=== PATIENT | male | born 1965 | race Caucasian/White ===

== ENCOUNTER → 2020-08-31 08:27 | Outpatient (CLI) | payer OTHER, SELFPAY ==
--- NOTE | ~2020-08-31 | MR_ITS ---
EXAMINATION: MR shoulder RT wo con DATE: 08/31/2020 09:21 INDICATION: Right shoulder pain. TECHNIQUE: Magnetic resonance imaging (MRI) of the right shoulder was performed without intravenous c ontrast. Sequences included axial PD-weighted FS FSE, coronal oblique PD-weighted FS FSE and T2-weigh lucia FS FSE, axial STIR FSE, and sagittal oblique T2-weighted FS FSE and T1-weighted FSE. COMPARISON: Right shoulder radiographs 08/20/2020 FINDINGS: Coracoacromial arch: The acromion undersurface is curved in morphology (type II). There is moderate acromioclavicular join t osteoarthritis. There is mild subacromial/subdeltoid bursitis. Rotator cuff: There is mild supraspinatus and infraspinatus tendinopathy. Teres minor tendon is normal. There is mo derate subscapularis tendinopathy. There is a 10 x 5 mm ganglion cyst in subscapularis at the myotend inous junction. There is mild fatty atrophy of subscapularis muscle belly. There is edema-like marrow signal intensity in lesser tuberosity. Biceps tendon and glenoid labrum: Biceps tendon is in bicipital groove. Intra-articular biceps tendon is normal. The glenoid labrum is normal. Fluid: There is a small glenohumeral joint effusion. Bones/cartilage: Glenoid cartilage is normal. Humeral head cartilage is normal. IMPRESSION: 1. Moderate rotator cuff tendinopathy. Small ganglion cyst in subscapularis at the myotendinous junct ion. 2. Moderate acromioclavicular joint osteoarthritis. 3. Mild subacromial/subdeltoid bursitis. 4. Small glenohumeral joint effusion. Reviewed, dictated and finalized at location A. IMPRESSION: 1. Moderate rotator cuff tendinopathy. Small ganglion cyst in subscapularis at the myotendinous junction. 2. Moderate acromioclavicular joint osteoarthritis. 3. Mild subacromial/subdeltoid bursitis. 4. Small glenohumeral joint effusion.
== END ==
PROVIDERS: Visit Provider Nurse Practitioner Family
DX: M25.511 Pain in right shoulder (principal); M75.82 Other shoulder lesions, left shoulder; M67.411 Ganglion, right shoulder; M19.011 Primary osteoarthritis, right shoulder; M75.51 Bursitis of right shoulder; M25.411 Effusion, right shoulder
CPT/HCPCS: 73221

== ENCOUNTER 2020-09-11 16:41 | Outpatient (CLI) | payer OTHER, SELFPAY ==
--- NOTE | ~2020-09-11 | MR_ITS ---
EXAMINATION: MR knee RT wo con DATE: 09/11/2020 17:32 INDICATION: Right knee pain TECHNIQUE: Magnetic resonance imaging (MRI) of the right knee was performed without intravenous contr ast. Sequences included coronal PD-weighted FSE, coronal PD-weighted FS FSE, sagittal T2-weighted FS E, sagittal PD-weighted FS FSE and axial PD weighted fat saturated FSE. COMPARISON: None. FINDINGS: Medial compartment: Medial meniscus is normal. Mild chondral swelling and likely fissure with tiny underlying central sub chondral osteophyte along the lateral margin of the anterior weightbearing medial femoral condyle. Ar ticular cartilage the medial compartment is otherwise normal. Lateral compartment: Lateral meniscus is normal. Articular cartilage is normal. Patellofemoral compartment: Diffuse partial-thickness patellar cartilage loss with small regions of full/near full-thickness jose d dral ulceration with underlying subarticular edema and. A few small flat central subchondral osteophy parrish. Trochlear cartilage is relatively preserved. Ligaments and tendons: Anterior and posterior cruciate ligaments are normal. The medial collateral ligament and fibular tari ateral ligament complex are normal. The extensor mechanism is normal. The visualized medial and later al hamstring tendons as well as the iliotibial band are normal. Fluid: Small right knee joint effusion. No loose osteochondral bodies identified. There is a large partially visualized loculated fluid collection along the superficial margin of the vastus medialis and supero medial aspect of the patella which measures at least 4.8 x 1.7 cm in maximal transaxial dimensions an d on the supervisor special education image measures 6.6 cm in craniocaudal dimension. The location is more superomedial stephanie n would be expected for the prepatellar bursa given history of trauma would favor a hematoma/seroma a t the site of an internal degloving injury (Arriola Gautam lesion). There is additional prepatellar s oft tissue edema. Osseous/other: Bone alignment is normal. No fracture. There is a 9 x 4 mm ovoid defect in the anterior cortex of the supratrochlear distal femur with intermediate signal extending along a 1 cm deep tract into the medu llary space of the distal femur. There are well-defined margins to the defect with peripheral low sig nal intensity cortication. The immediately adjacent marrow signal is normal. There is also some remod eling of the cortex peripheral to the cortical defect. There is intermediate signal intensity within the defect which is contiguous with a small region of similar signal intensity underlying the elevate d periosteum external to the cortex. This region measures approximately 2.3 cm medial to lateral, 2.2 cm cranial to caudal and measures up to 5 mm in thickness. Aside from this lesion and the previous n oted subarticular edema there is normal marrow signal. IMPRESSION: 1. 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 2. 6.8 x 4.8 x 1.7 cm loculated fluid collection along the superficial margin of the distal vastus me dialis which given the history of trauma would be most consistent with a hematoma/seroma in the setti ng of an internal degloving injury (Arriola Gautam lesion). 3. Indeterminate chronic lytic lesion extending through the anterior cortex of the distal right femur with corticated margins and which is contiguous with a small subperiosteal lesion, unclear whether s olid or cystic. Differential would include sequela of prior surgery or trauma, chronic sinus tract re lated osteomyelitis or neoplasm either benign or low-grade malignant. Correlate with clinical history and consider further evaluation with plain radiographs and pre and postcontrast MRI. Reviewed, dictated and finalized at location AFer [facility]c
== END 2020-09-11 16:42 | disposition home or self-care (01) ==
LOC: ANHIMG 16:45
PROVIDERS: PCP Internal Medicine; Visit Provider Nurse Practitioner
DX: M17.11 Unilateral primary osteoarthritis, right knee (principal); M22.41 Chondromalacia patellae, right knee
CPT/HCPCS: 73721

== ENCOUNTER 2020-10-24 17:00 | Outpatient (CLI) | payer OTHER, SELFPAY ==
--- NOTE | ~2020-10-24 | MR_ITS ---
EXAMINATION: MR femur RT wo/w con DATE: 10/25/2020 06:39 INDICATION: Distal right femoral bone lesion TECHNIQUE: Magnetic resonance imaging (MRI) of the right femur was performed without and with 15 mL M ultihance intravenous contrast. Sequences included axial, sagittal and coronal T1-weighted FSE and fl uid sensitive FSE STIR, axial T1-weighted FS FSE and post contrast axial and coronal T1-weighted FS F SE. The contralateral left femur/thigh is included on the coronal images. COMPARISON: Knee MR dated 09/11/2020 FINDINGS: No significant interval change in a 10 x 5 mm T1 isointense, STIR hyperintense lesion which erodes th rough the cortex along the anterior metaphyseal region of the distal femur just above the lateral tro chlea. The lesion is contiguous with a region of elevation of the periosteum peripheral to the cortex which extends approximately 2.5 cm medial collateral, 3 cm craniocaudal and measuring up to 5 mm in thickness. Both the lesion in the region under the elevated periosteum demonstrate relatively homogen eous enhancement with no nonenhancing central fluid or surrounding marrow enhancement or edema to sug gest infection/abscess favoring solid neoplasm. The periosteal side of the enhancing lesion appears t o remain intact with no evident involvement of the joint space with the intervening deep suprapatella r fat pad. There are some likely degenerative subarticular edema underlying the medial and lateral pa tellar facets with overlying high-grade chondromalacia as previously detailed. Marrow signal is other pedroza normal with no other bone lesions identified in the right femur. No hip or knee joint effusion. Musculature of the bilateral thighs appears normal and symmetric. No other enhancing soft tissue lesi ons or pathologically enlarged inguinal lymphadenopathy. IMPRESSION: 1. Relatively homogeneous enhancement of a 10 x 5 mm distal right femoral bone lesion located cephala d to the lateral trochlea with extension of enhancing soft tissue 3 defect in the cortex and into the subperiosteal space. This is most concerning for malignancy including primary bone tumor such as per iosteal chondrosarcoma or osteosarcoma. Differential would include less likely chronic infection. Wou ld recommend orthopedic oncology consultation as well as plain radiographs or CT which would aid in a ssessment for aggressive versus nonaggressive features and to assess for any calcified matrix. Reviewed, dictated and finalized at location A. IMPRESSION: 1. Relatively homogeneous enhancement of a 10 x 5 mm distal right femoral bone lesion located cephalad to the lateral trochlea with extension of enhancing sof t tissue 3 defect in the cortex and into the subperiosteal space. This is most concerning for malignancy including primary bone tumor such as periosteal chond rosarcoma or osteosarcoma. Differential would include less likely chronic infec tion. Would recommend orthopedic oncology consultation as well as plain radiogr aphs or CT which would aid in assessment for aggressive versus nonaggressive fe atures and to assess for any calcified matrix.
[2020-10-24 17:43] LABS: Estimated Glomerular Filt Rate 58
== END 2020-10-24 17:01 | disposition home or self-care (01) ==
LOC: ANHIMG 17:02
PROVIDERS: PCP Internal Medicine; Visit Provider Nurse Practitioner
DX: M89.9 Disorder of bone, unspecified (principal)
CPT/HCPCS: 73720; A9577

== ENCOUNTER → 2021-03-12 14:32 | Outpatient (CLI) | payer OTHER, SELFPAY ==
--- NOTE | ~2021-03-12 | MR_ITS ---
EXAMINATION: MR hip LT wo con DATE: 03/12/2021 16:28 INDICATION: Left hip pain. TECHNIQUE: Magnetic resonance imaging (MRI) of the left hip was performed without intravenous contras t. Sequences included axial and coronal PD-weighted FS FSE and axial T1-weighted FSE of the pelvis. S equences of the hip included 2D FIESTA, T1-weighted fast GRE, and axial, coronal, and sagittal PD-kate ghted FS FSE. COMPARISON: Pelvis and left hip radiographs 02/24/2021 FINDINGS: Bones/cartilage: Bone alignment is normal. No fracture. The femoral head/neck morphologies are normal. Left hip joint demonstrates partial thickness cartilage loss superiorly. Labrum: Left acetabular labrum is normal. Fluid: There is no hip joint effusion. There is mild bilateral trochanteric bursitis. Soft tissues: There is mild bilateral gluteus minimus tendinopathy. The right gluteus medius tendon is normal. Ther e is mild left gluteus medius tendinopathy. The iliopsoas tendons are normal. There is mild tendinopa thy of the hamstring origins bilaterally. IMPRESSION: 1. Mild left hip chondrosis. 2. Mild bilateral gluteus minimus tendinopathy and mild left gluteus medius tendinopathy. 3. Mild bilateral trochanteric bursitis. Reviewed, dictated and finalized at location A. OR TUG CAPTAIN IMPRESSION: 1. Mild left hip chondrosis. 2. Mild bilateral gluteus minimus tendinopathy and mild left gluteus medius ten dinopathy. 3. Mild bilateral trochanteric bursitis.
== END ==
PROVIDERS: PCP Internal Medicine; Visit Provider Nurse Practitioner Family
DX: M70.62 Trochanteric bursitis, left hip (principal)
CPT/HCPCS: 73721

== ENCOUNTER 2021-03-26 09:17 | Outpatient (CLI) | payer OTHER, SELFPAY ==
--- NOTE | ~2021-03-26 | MR_ITS ---
EXAMINATION: MR shoulder LT wo con DATE: 03/26/2021 10:44 INDICATION: Left shoulder pain TECHNIQUE: Magnetic resonance imaging (MRI) of the left shoulder was performed without intravenous co ntrast. Sequences included axial PD-weighted FS FSE, coronal oblique PD-weighted FS FSE, coronal obli que T2-weighted FS FSE, sagittal PD-weighted FS FSE, and sagittal T1-weighted SE. COMPARISON: None. FINDINGS: Coracoacromial arch: The acromion undersurface is curved in morphology (type II). The coracoacromial ligament is normal. M ild acromioclavicular osteoarthritis. Rotator cuff: Mild supraspinatus tendinopathy without discrete tear. The infraspinatus, teres minor and subscapular is tendons are normal. Normal rotator cuff muscle bulk and signal. Biceps tendon, glenoid labrum and glenohumeral cartilage: Long head of the biceps tendon is normal. Partial-thickness cartilage loss with smooth chondral surfa ce along the cephalad two thirds of the glenoid and along the inferomedial aspect of the humeral head . Small tear at the anterosuperior glenoid labrum extending from the likely normal sublingual foramen . Minimal cystic change along the underlying rim of the glenoid at the 1:00 position. Fluid: Physiologic amount of fluid in the glenohumeral joint and biceps tendon sheath. No loose osteochondra l bodies. No abnormal increased fluid signal in the subacromial/subdeltoid bursa to suggest bursitis. Bones: Normal marrow signal. No fracture or pathologic marrow replacing process. IMPRESSION: 1. Mild left glenohumeral and acromioclavicular osteoarthritis. 2. Small tear at the anterosuperior glenoid labrum. 3. Mild supraspinatus tendinopathy without discrete tear. Reviewed, dictated and finalized at location A. SIONS ENGINEER
--- NOTE | ~2021-03-26 | XR_ITS ---
EXAMINATION: XR lg joint inject/asp w image EXAM DATE: 03/26/2021 11:29 INDICATION: Left hip pain, arthritis. TECHNIQUE: This procedure was performed by Dr. Yovany Walton, radiologist. I discussed procedure inclu ding the risks, benefits and alternatives with the patient. Risks discussed included bleeding and inf ection. The patient understood the risks and agreed to proceed. A time-out was performed to verify the patient's name, date of , and procedure. The skin over lying the left hip joint was prepped and draped in usual sterile fashion. Anesthetic was administere d with 3 milliliters 1% lidocaine subcutaneously. A 22 G needle was advanced under fluoroscopic guid ance into the joint. A total of 12 mL of 1:200 of 529 mg/mL Multihance, 1:4 lidocaine, and 1:4 Omnip aque 240 was instilled. Total of 2 mL of Omnipaque 240 confirmed intra-articular position of the ne edle. Subsequently, injectate consisting of 80 mg Depo-Medrol, 2 mL 0.5% Marcaine was instilled. T he needle was removed and the entry site was cleaned and dressed. There were no immediate complicati ons. Pulsed dose reduction fluoroscopy was used with fluoroscopic time of 0.1 minutes. The DAP for this procedure was 0.5 Gycm2. A total of 4 images obtained for the exam. The procedure was performed on 03/26/2021. FINDINGS: Real-time fluoroscopy demonstrates the needle and contrast in the left hip joint. Patient reported left hip preprocedure pain level of 3/10, postprocedure pain level 1/10. IMPRESSION: Successful left hip therapeutic joint injection. Reviewed, dictated and finalized at location A. MEDIC RN
== END 2021-03-26 09:18 | disposition home or self-care (01) ==
LOC: ANHIMG 09:18
PROVIDERS: PCP Internal Medicine; Visit Provider Nurse Practitioner Family
DX: M25.512 Pain in left shoulder (principal); M19.012 Primary osteoarthritis, left shoulder
CPT/HCPCS: 20610; 73221; 77002; J1030; Q9966

== ENCOUNTER → 2022-05-28 10:34 | Outpatient (CLI) | payer OTHER, SELFPAY ==
--- NOTE | ~2022-05-28 | XR_ITS ---
XR chest 2V 05/28/2022 10:45 Indication: Unexplained weight loss Procedure: 2 view chest Comparison: No prior studies for comparison. Findings: Heart size normal. No focal air space disease, pulmonary edema, pleural effusion or suspect ed pneumothorax. Impression: 1: No acute cardiopulmonary disease. Reviewed, dictated and finalized at [facility] L. ATION RESEARCH ANALYST Impression: 1: No acute cardiopulmonary disease.
== END ==
PROVIDERS: PCP Internal Medicine; Visit Provider Nurse Practitioner
DX: R63.4 Abnormal weight loss (principal)
CPT/HCPCS: 71046

== ENCOUNTER → 2022-06-12 13:49 | Outpatient (CLI) | payer OTHER, SELFPAY ==
--- NOTE | ~2022-06-12 | CT_ITS ---
EXAMINATION: CT chest abdomen pelvis w con DATE: 06/12/2022 14:19 INDICATION: Unintentional weight loss TECHNIQUE: Computed tomography (CT) of the chest, abdomen, and pelvis was performed with 100 mL Omnip aque-350 intravenous contrast. Automated exposure control and iterative reconstruction technique were employed. The dose-length product was 854.73 mGy-cm. COMPARISON: None FINDINGS: CHEST CT: Anatomic variant azygos lobe and fissure. Minimal dependent atelectasis in the bilateral lower lobes. No suspicious pulmonary nodules, pneumonia, pulmonary edema or pleural effusion. Heart size is jaziel l. No pericardial effusion. Fusiform ascending thoracic aortic aneurysm measuring up to 4.4 x 4.3 cm. No pathologically enlarged thoracic lymphadenopathy. ABDOMEN/PELVIS CT: Postoperative change of prior Rikki fundoplication. Mild intrahepatic biliary ductal dilation and mi ld dilation of the common bile duct which measures up to 10 mm in maximal diameter likely related to prior cholecystectomy with surgical clips at the gallbladder fossa. Spleen, pancreas, bilateral adren al glands and left kidney are normal. 1 cm exophytic cyst at the lower pole of the right kidney. Raysa ls including the appendix are normal. A loop of small bowel extends anterior to the liver and into th e anterior aspect of an eventration of the right hemidiaphragm. Bladder is normal. No free intraperit lozoya gas or fluid. No pathologically enlarged abdominal or pelvic lymphadenopathy. IMPRESSION: 1. No acute intrathoracic, abdominal or pelvic process. No lesions suspicious for malignancy in the c hest, abdomen or pelvis. 2. 4.4 cm fusiform ascending thoracic aortic aneurysm. Reviewed, dictated and finalized at location B. IMPRESSION: 1. No acute intrathoracic, abdominal or pelvic process. No lesions suspicious f or malignancy in the chest, abdomen or pelvis. 2. 4.4 cm fusiform ascending thoracic aortic aneurysm.
[2022-06-12 14:10] LABS: Estimated Glomerular Filt Rate > 60
== END ==
PROVIDERS: PCP Internal Medicine; Visit Provider Nurse Practitioner
DX: R63.4 Abnormal weight loss (principal); R61 Generalized hyperhidrosis; I71.21 Aneurysm of the ascending aorta, without rupture
CPT/HCPCS: 71260; 74177; Q9967

== ENCOUNTER 2022-12-13 11:28 | Observation (INO) | payer OTHER, SELFPAY ==
--- NOTE | ~2022-12-13 | CT_ITS ---
EXAMINATION: CT abdomen pelvis wo con DATE: 12/15/2022 13:43 INDICATION: Recent left ureterovesicular junction stone TECHNIQUE: Computed tomography (CT) of the abdomen and pelvis was performed without intravenous contr ast. The dose-length product (DLP) was 363.49 mGy-cm. Automated exposure control and iterative recons truction technique were employed. COMPARISON: 12/13/2022 FINDINGS: Minimal dependent atelectasis is present in the lung bases. The heart size is normal. The g allbladder is surgically absent. There is mild enlargement of the common bile duct and central intrah epatic ducts which is likely due to post cholecystectomy state. The liver, spleen, pancreas, and adre nal glands are normal. There are two nonobstructing stones of the right kidney lower pole which measu re 2 mm. There is a 10 mm cyst of the right kidney lower pole. The previously described stone at the left ureterovesicular junction is no longer present. No stones are present in the ureters or bladder. There is mild periureteral fat stranding on the left, consistent with inflammation and recent passag e of stone. No pathologically enlarged abdominal or pelvic lymph nodes are identified. No free intrap eritoneal gas or evidence of bowel obstruction. Punctate appendicoliths are noted in the otherwise no rmal appendix. There is mild lumbar spondylosis. IMPRESSION: 1. Interval passage, or treatment, of the previously described left ureterovesicular junction stone. 2. Nonobstructing right nephrolithiasis. Reviewed, dictated and finalized at location [facility]. IMPRESSION: 1. Interval passage, or treatment, of the previously described left ureterovesi cular junction stone. 2. Nonobstructing right nephrolithiasis.
--- NOTE | ~2022-12-13 | CT_ITS ---
EXAMINATION: CT abdomen pelvis wo con DATE: 12/13/2022 13:03 INDICATION: Flank pain. Constipation. Nausea. TECHNIQUE: Computed tomography (CT) of the abdomen and pelvis was performed without intravenous contr ast. Automated exposure control and iterative reconstruction technique were employed. Exam dose: 358 .84 mGy-cm total exam DLP. COMPARISON: 06/12/2022 CT chest abdomen pelvis FINDINGS: The lung bases are clear. Normal heart size. No pericardial or pleural effusion. Very small sliding hiatal hernia. Status post cholecystectomy. Normal splenic size. There is pancreatic atrophy. No pancreatic mass lesion, calcification or bile duct or pancreatic duct dilatation. Normal morphology of the adrenal glands. There are 2 very small nonobstructing lower pole left renal calculi. Approximately 2.3 x 4 mm calculus at the left ureterovesical junction with mild left hydroureteroneph rosis. There is some increased density around the left renal pelvis and left ureter, which may be sec ondary to pyelosinus extravasation secondary to obstruction, but infection is not excluded. Clinical correlation is advised. Prostate enlargement and calcifications, which may account for moderate diffuse thickening of the uri nary bladder wall. There is a small appendicolith within the distal appendix. No abnormal dilatation of the appendix or surrounding inflammation is noted. There are air-fluid levels of the small bowel and right colon, without apparent obstruction, possibly due to adynamic ileus or enterocolitis. No intraperitoneal free air is detected. Normal caliber of the abdominal aorta. No intraperitoneal or retroperitoneal or pelvic mass lesion or adenopathy or ascites is noted.. IMPRESSION: 2.3 x 4 mm left ureterovesical junction calculus with mild left hydroureteronephrosis, p robable peripelvic and proximal periureteral pyelosinus extravasation secondary to obstruction; infec tion is not excluded Minimal right nonobstructive nephrolithiasis Status post cholecystectomy Air-fluid levels of small bowel and right colon; consider enterocolitis Very small appendicolith in the distal appendix; appendix is not abnormally dilated millimeters there is surrounding inflammation. Clinical correlation is advised. Prostate enlargement and calcifications Reviewed, dictated and finalized at [facility]. Reviewed, dictated and finalized at location A. IMPRESSION: 2.3 x 4 mm left ureterovesical junction calculus with mild left hy droureteronephrosis, probable peripelvic and proximal periureteral pyelosinus e xtravasation secondary to obstruction; infection is not excluded Minimal right nonobstructive nephrolithiasis Status post cholecystectomy Air-fluid levels of small bowel and right colon; consider enterocolitis Very small appendicolith in the distal appendix; appendix is not abnormally dil ated millimeters there is surrounding inflammation. Clinical correlation is adv ised. Prostate enlargement and calcifications
--- NOTE | ~2022-12-13 | XR_ITS ---
EXAMINATION: XR abdomen/kub 1V INDICATION: Flank pain TECHNIQUE: Supine views of the abdomen were obtained on 2 radiographs. COMPARISON: CT, 12/13/2022 FINDINGS: The left ureterovesicular junction stone described on the comparison CT is not definitely i dentified. The bowel gas pattern is normal. Cholecystectomy clips are noted. IMPRESSION: 1. Previously described left ureterovesicular junction stone not definitely identified. Reviewed, dictated and finalized at location L. IMPRESSION: 1. Previously described left ureterovesicular junction stone not definitely melo ntified.
[2022-12-13 11:37] VITALS: BP 134/89; PULSE 60; RESP 20; TEMP 36.4; O2SAT 100
[2022-12-13 12:09] LABS: Basophils Percent Auto 0.3 % (0.2-1.2); Eosinophils Absolute Auto 0.1 K/mm3 (0-0.3); Eosinophils Percent Auto 1.4 % (0-4.4); Hematocrit 38.9 % (42.0-52.0); Hemoglobin 13.3 g/dL (14.0-18.0); Immature Granulocyte Absolute 0.05 K/mm3 (0.00-0.031); Immature Granulocyte Percent A 0.5 % (0-0.5); Lymphocytes Absolute Auto 0.93 K/mm3 (0.9-3.2); Lymphocytes Percent Auto 9.5 % (18.3-44.2); Mean Corpuscular HGB Conc 34.2 g/dl (32-36); Mean Corpuscular Hemoglobin 33.5 pg (26-34); Mean Platelet Volume 9.6 fl (7.4-10.4); Monocytes Absolute Auto 0.4 K/mm3 (0.1-0.6); Monocytes Percent Auto 4.2 % (2.6-8.5); Neutrophils Absolute Auto 8.3 K/mm3 (1.3-6.7); Neutrophils Percent Auto 84.1 % (45.5-73.1); Platelet Count Result 423 k/mm3 (150-375); Red Blood Count 3.97 M/mm3 (4.6-6.20); Red Cell Distribution Width 13.7 % (11.5-14.5); White Blood Count 9.8 K/mm3 (4.5-10.0)
[2022-12-13 12:21] LABS: Appearance Urine Turbid (Clear); Bacteria Urine None Seen /hpf; Bilirubin Urine Negative (Negative); Blood Urine 2+ (Negative); Color Urine Dark Yellow (Yellow); Glucose Urine UA Negative (Negative); Ketones Urine Trace mg/dL (Negative); Leukocyte Esterase Ur Negative LEU/UL (Negative); Nitrate Urine Negative (Negative); Non Pathogenic Casts 0-2; Protein Urine Trace mg/dL (Negative); RBC Urine 21-50 /hpf (0-2); Specific Grav Ur 1.016 (1.001-1.035); Squamous Epithelial Cell Urine None seen /hpf (Few); WBC Urine 0-5 /hpf
[2022-12-13 12:23] LABS: Add Urine Microscopic? YES
[2022-12-13 12:26] LABS: Alanine Aminotransferase 57 U/L (6-50); Albumin Level 4.4 g/dL (3.5-5.1); Alkaline Phosphatase 97 U/L (38-126); Anion Gap 11 mmol/L (8-16); Aspartate Amino Transferase 44 U/L (17-59); Bilirubin,Total 1.1 mg/dL (0.2-1.3); Blood Urea Nitrogen 12 mg/dL (9-20); Calcium 9.7 mg/dL (8.4-10.2); Carbon Dioxide 18 mmol/L (22-30); Chloride 110 mmol/L (98-107); Estimated CRCL calculation 64 ml/min; Estimated Glomerular Filt Rate > 60; Glucose 126 mg/dL (65-110); Lipase 57 U/L (23-300); Potassium 3.3 mmol/L (3.4-5.0); Sodium 139 mmol/L (137-145)
[2022-12-13 12:28] LABS: Lactic Acid Reflex 2.6 mmol/L (0.7-2.0)
--- NOTE | 2022-12-13 12:49 | ED.ABDPAIN ---
HPI - Abdominal Pain General Chief Complaint: Abdominal Pain Stated Complaint: abdominal pain, constipation Time Seen by Provider: 12/13/22 12:05 History of Present Illness HPI narrative: Patient is a 56-year-old male with a history of neurofibromatosis, hypothyroidism presenting with abdominal pain. is at bedside and helps with the history. States that he has been having abdominal pain all week. He has not had a bowel movement in approximately 9 to 10 days. He was seen at an outside hospital 2 days ago [address] a CT was performed and he was told nothing was wrong. His has given him numerous enemas as well as MiraLAX without any subsequent bowel movements. He continues to have periumbilical abdominal pain as well as left flank pain. Reports nausea but no vomiting as he has had a prior fundoplication. No fevers, chest pain, shortness of breath, cough, dysuria, hematuria. Related Data Home Medications Medication Instructions Recorded Confirmed cetirizine 10 mg capsule (Zyrtec) 10 mg PO DAILY 08/29/19 12/13/22 levothyroxine 125 mcg capsule 125 mcg PO DAILY 01/14/21 12/13/22 cyclobenzaprine 5 mg tablet 5 mg PO QHS 12/25/21 12/13/22 tramadol 50 mg tablet 50 mg PO PRN PRN Pain, Moderate 05/28/22 12/13/22 folic acid 1 mg tablet 1 mg PO DAILY 08/11/22 12/13/22 golimumab 12.5 mg/mL intravenous 12.5 mg IV Q1-2M 08/11/22 12/13/22 solution (Simponi ARIA) prednisone 5 mg tablet 5 mg PO TID PRN Inflammation 09/07/22 12/13/22 cholecalciferol (vitamin D3) 25 25 mcg PO DAILY 12/13/22 12/13/22 mcg (1,000 unit) chewable tablet (Vitamin D3) diclofenac sodium 75 mg 75 mg PO BID 12/13/22 12/13/22 tablet,delayed release diphenhydramine HCl 50 mg capsule 50 mg PO HS PRN Insomnia 12/13/22 12/13/22 ketoconazole 2 % topical cream 1 applic topical PRN 12/13/22 12/13/22 [id number] 150 mcg-vit K1 150 tablet PO DAILY 12/13/22 12/13/22 30 mcg-lycop 300 mcg-lutein tablet (Centrum Minis Men 50 Plus) olmesartan 20 mg tablet 20 mg PO DAILY 12/13/22 12/13/22 ubrogepant 50 mg tablet (Ubrelvy) 50 mg PO PRN 12/13/22 12/13/22 Allergies Allergy/AdvReac Type Severity Reaction Status Date / Time erythromycin base Allergy Unknown Other Verified 09/07/22 09:36 Review of Systems Review of Systems: All systems reviewed & are unremarkable except as noted in HPI and below [facility] Past Medical History Medical History (Updated 12/19/22 @ 19:34 by Henna Khanna MD) Ankylosing spondylitis Hypothyroidism Lumbago Neurofibromatosis Obstructive sleep apnea Thoracic aortic aneurysm Surgical History Surgical History History of fundoplication Hx of cholecystectomy Family History Family History Other Hypertension Social History Social History Smoking status: Former smoker Alcohol intake: never Substance use: current Substance use type: marijuana Other substance usage details: medical marijuana Lack of Transportation: No Lack of Food: Never True Current Housing: I Have Housing Concerned About Future Housing: No Difficulty Paying Gas/Electric Bills: No Difficulty Paying for Meds: No Currently Unemployed: No Education: High School Diploma/GED Difficulty w/ Childcare or Family Care: No Spiritual care concerns: No Exam Narrative: GENERAL: Moderately distressed secondary to pain, nontoxic HEAD: Normocephalic, atraumatic. EYES: PERRLA and EOMI. ENT: Nares clear, no rhinorrhea or epistaxis. Mucous membranes moist. NECK: Supple. CHEST: Clear to auscultation. No respiratory distress. HEART: Regular rate and rhythm. ABDOMEN: Soft, diffusely tender without guarding or rebound, +left CVA tenderness EXTREMITIES: Normal range of motion. No edema. SKIN: Warm, dry, no rash. NEURO: No focal deficits. Alert and oriented x3. PSYCH:
[2022-12-13] MEDS: HYDROmorphone HCL INJ (*CRX) 1 MG/ML SYR 0.5 MG IV PUSH (13:11)
[2022-12-13] MEDS: ONDANSETRON INJ 4 MG/2 ML VIAL IV PUSH (13:11)
[2022-12-13] MEDS: SODIUM CHLORIDE 0.9% IV 1,000 ML 999 ML IV CONT ×2 (13:12→15:25)
[2022-12-13 15:08] LABS: Reflex Lactic Acid Yes or No Add Lactic
[2022-12-13 15:24] VITALS: BP 110/85; PULSE 96; RESP 18; O2SAT 98
[2022-12-13 15:59] LABS: Lactic Acid 1.6 mmol/L (0.7-2.0)
[2022-12-13] MEDS: KETOROLAC 30 MG/ML VIAL (*BKC) IV PUSH (16:40)
[2022-12-13 18:24] VITALS: BP 103/90; PULSE 91; RESP 18; O2SAT 100
--- NOTE | 2022-12-13 18:41 | ADMGEN ---
This patient, Ramakrishna Wylie, was admitted to 3 Med Surg Room 311-01 @ 1841. Patient/family oriented to hospital policies and general routines including ID bracelet, bed and alarms, visiting hours, pain management, procedures, bathroom and other care routines, personal items, smoking policy, room service/diet, and visiting hours. Information on how to activate the Rapid Response Team has been discussed. Patient/Family are encouraged to report perceived risks to care and to ask questions if they do not understand what they are told or what they should do.
[2022-12-13 18:58] VITALS: BMI 26.0
[2022-12-13 20:49] VITALS: BP 122/85; PULSE 75; RESP 16; TEMP 36.7; O2SAT 99
[2022-12-13] MEDS: HYDROcodone/acetaminophen (*CRX) 5-325 MG TABLET 1 TAB PO (21:22)
--- NOTE | 2022-12-13 23:06 | PM.IMHP ---
H&P: HPI History of Present Illness Date/Time: 12/13/22 19:00 Chief Complaint: Abdominal pain. Narrative: This is a 56-year-old male with neurofibromatosis, hypothyroidism, and ankylosing spondylitis who presented to the emergency department via private vehicle from home for evaluation of abdominal pain. The patient provides the following history. He reports a generalized abdominal cramping discomfort which has been present for upwards of 10 days which she contributes to constipation as he has not had a good bowel movement in the same time frame. He was seen at [facility] 2 days ago for evaluation of this pain at which time he apparently had a CT scan which she was told was unremarkable. He was discharged home in the same discomfort he was in when he arrived. has given him multiple enemas and MiraLax without significant resolved however he has passed some stool. He continues to have pain which seems to be worse in the left abdomen and flank. He has missed several days of work due to the pain. He was told to stop taking the tramadol and his medical marijuana as both of these could be causing the constipation. Despite stopping these drugs and the enemas, he has not gotten any relief. Historically he has not had issues with constipation however he has been taking 2 tramadol most days for a couple of months due to ongoing pain related to ankylosing spondylitis. He denies fever, chills, sweats, cold and flu symptoms, vomiting, hematemesis, melena, hematochezia, dysuria, and hematuria. He was afebrile on arrival to the emergency department with stable vital signs. Labs were significant for a WBC count of 9.8, hemoglobin 13.3, sodium 139, potassium 3.3, lactic acid 2.6, lipase 57. Urine was turbid with trace ketones, 2+ blood, 21 to 50 RBC, 0 to 5 WBC, and [address] of the abdomen and pelvis showed a 2.3 x 4 mm left ureterovesicular junction calculus with mild left hydroureteronephrosis and probable peripelvic and proximal periureteral pyelosinus extravasation secondary to obstruction though infection is not excluded, minimal right nonobstructive nephrolithiasis, and air-fluid levels of the small bowel and right colon which may be reflective enterocolitis. He is being admitted in this setting for pain control and urology consultation. Review of Systems Review of Systems: Twelve systems were reviewed and are negative except for as per HPI. [facility] Past Medical History Medical History (Updated 12/15/22 @ 15:57 by Apryl Carvajal PA-C) Ankylosing spondylitis Hypothyroidism Lumbago Neurofibromatosis Obstructive sleep apnea Thoracic aortic aneurysm Surgical History Surgical History History of fundoplication Hx of cholecystectomy Family History Family History Other Hypertension Social History Social History Smoking status: Former smoker Alcohol intake: never Substance use: current Substance use type: marijuana Other substance usage details: medical marijuana Lack of Transportation: No Lack of Food: Never True Current Housing: I Have Housing Concerned About Future Housing: No Difficulty Paying Gas/Electric Bills: No Difficulty Paying for Meds: No Currently Unemployed: No Education: High School Diploma/GED Difficulty w/ Childcare or Family Care: No Spiritual care concerns: No Meds Home Medications and Allergies Home Medications Medication Instructions Recorded Confirmed Type cetirizine 10 mg capsule (Zyrtec) 10 mg PO DAILY 08/29/19 12/13/22 History levothyroxine 125 mcg capsule 125 mcg PO DAILY 01/14/21 12/13/22 History cyclobenzaprine 5 mg tablet 5 mg PO QHS 12/25/21 12/13/22 History nadolol 20 mg tablet 20 mg PO DAILY #30 tabs 05/04/22 12/13/22 Rx tramadol 50 mg tablet 50 mg PO PRN PRN Pain, Moder
[2022-12-13] MEDS: POTASSIUM CHLORIDE 20 MEQ PACKET (FOR LIQUID) PO (23:47)
[2022-12-13] MEDS: LACTATED RINGERS 1,000 ML 100 ML IV CONT (23:48)
[2022-12-13] MEDS: PIPERACILLN/TAZ 3.375GM/NS50ML 3.375 GM/50 ML BAG IVPB (23:48)
[2022-12-13] MEDS: MORPHINE SULFATE (*CRX) 2 MG/ML INJ IV PUSH (23:58)
[2022-12-14] MEDS: diphenhydrAMINE HCl CAP 25 MG CAPSULE 50 MG PO (00:03)
[2022-12-14 04:26] VITALS: BP 99/72; PULSE 82; RESP 16; TEMP 36.7; O2SAT 100
[2022-12-14] MEDS: PIPERACILLN/TAZ 3.375GM/NS50ML 3.375 GM/50 ML BAG IVPB ×4 (05:22→23:01)
[2022-12-14] MEDS: MORPHINE SULFATE (*CRX) 2 MG/ML INJ IV PUSH (05:29)
--- NOTE | 2022-12-14 06:32 | PC.NURSE ---
This RN has reviewed and agrees with Geovanna Edmonds (license pending RN) nursing notes, assessments, and medication administrations.
[2022-12-14 07:08] LABS: Hematocrit 32.4 % (42.0-52.0); Hemoglobin 10.9 g/dL (14.0-18.0); Mean Corpuscular HGB Conc 33.6 g/dl (32-36); Mean Corpuscular Hemoglobin 33.6 pg (26-34); Mean Platelet Volume 9.3 fl (7.4-10.4); Platelet Count Result 217 k/mm3 (150-375); Red Blood Count 3.24 M/mm3 (4.6-6.20); Red Cell Distribution Width 13.5 % (11.5-14.5)
[2022-12-14 07:17] LABS: Anion Gap 4 mmol/L (8-16); Blood Urea Nitrogen 12 mg/dL (9-20); Calcium 8.5 mg/dL (8.4-10.2); Carbon Dioxide 21 mmol/L (22-30); Chloride 112 mmol/L (98-107); Estimated CRCL calculation 41 ml/min; Estimated Glomerular Filt Rate 45; Glucose 97 mg/dL (65-110); Magnesium 1.9 mg/dL (1.6-2.3); Potassium 3.1 mmol/L (3.4-5.0); Sodium 137 mmol/L (137-145)
--- NOTE | 2022-12-14 07:45 | WPDURCON ---
Assessment and Plan Assessment and plan (1) Left ureteral stone: Code(s): N20.1 - Calculus of ureter Status: Acute Assessment and Plan: He currently appears comfortable. The stone is small on CT scan. One with the it has a reasonable chance of passing, but has not passed yet. Continue to strain his urine. We will get a KUB in the morning. If stone has failed to pass we will plan on left ureteroscopy and stone extraction tomorrow. He understands risks of bleeding, infection, damage to urinary tract, inability remove the stone. He is agreement to proceed with that procedure should he not pass his stone today Urology Consult Note HPI Date Seen: 12/14/22 Requesting Physician: Ivory Larose MD Primary Care Provider: Nakul Blanco DO Consult Narrative Narrative: Ramakrishna Wylie is a 56 year old male with no prior history of stone disease. He has had several days of left-sided and diffuse abdominal pain. He originally thought he was constipated and started using enemas at home with some relief of constipation. He was seen at [facility] ER. A CT scan was done with and without contrast that he was told was unremarkable. He continued to have abdominal pain. He presented to this emergency room. CT scan was done which showed a small 2 x 4 mm left distal ureteral stone. His pain is well controlled currently. He has received some pain medicine last night, but he states this was because of a headache. He has not seen the stone pass. He has no visible blood in the urine. No fevers or chills. No symptoms of urinary tract infection. No vomiting. Review of Systems Review of Systems: All systems reviewed & are unremarkable except as noted in HPI and below PMFSH Past Medical History Medical History AVN (avascular necrosis of bone) Cervicalgia Degenerative joint disease of left hip DJD of AC (acromioclavicular) joint DJD of shoulder Hx of neurofibromatosis Hx of sinus tachycardia Hypothyroidism Left hip pain Left shoulder pain Lumbago REAGAN (obstructive sleep apnea) Pain in right femur Right shoulder pain Rotator cuff tear Rotator cuff tear Rotator cuff tendinitis Thoracic aortic aneurysm Surgical History Surgical History History of fundoplication Hx of cholecystectomy Family History Family History Other Hypertension Social History Social History Smoking status: Former smoker Alcohol intake: never Substance use: current Substance use type: marijuana Other substance usage details: medical marijuana Lack of Transportation: No Lack of Food: Never True Current Housing: I Have Housing Concerned About Future Housing: No Difficulty Paying Gas/Electric Bills: No Difficulty Paying for Meds: No Currently Unemployed: No Education: High School Diploma/GED Difficulty w/ Childcare or Family Care: No Spiritual care concerns: No Meds Home Medications and Allergies Home Medications Medication Instructions Recorded Confirmed Type cetirizine 10 mg capsule (Zyrtec) 10 mg PO DAILY 08/29/19 12/13/22 History levothyroxine 125 mcg capsule 125 mcg PO DAILY 01/14/21 12/13/22 History cyclobenzaprine 5 mg tablet 5 mg PO QHS 12/25/21 12/13/22 History nadolol 20 mg tablet 20 mg PO DAILY #30 tabs 05/04/22 12/13/22 Rx tramadol 50 mg tablet 50 mg PO PRN PRN Pain, Moderate 05/28/22 12/13/22 History folic acid 1 mg tablet 1 mg PO DAILY 08/11/22 12/13/22 History golimumab 12.5 mg/mL intravenous 12.5 mg IV Q1-2M 08/11/22 12/13/22 History solution (Simponi ARIA) prednisone 5 mg tablet 5 mg PO TID PRN Inflammation 09/07/22 12/13/22 History topiramate 25 mg capsule,extended See Rx Instructions .Route 09/23/22 12/13/22 Rx release 24 hr (Cornelia
[2022-12-14 08:29] VITALS: PULSE 78
[2022-12-14] MEDS: nadoloL 20 MG TABLET PO (08:29)
[2022-12-14] MEDS: OLMESARTAN MEDOXOMIL 20 MG TABLET PO (08:29)
[2022-12-14] MEDS: MULTIVITAMINS /C LUTEIN (CENTRUM SILVER) TABLET *BKC 1 TAB PO (08:30)
[2022-12-14] MEDS: LORATADINE 10 MG TABLET PO (08:31)
[2022-12-14] MEDS: FOLIC ACID 1 MG TABLET PO (08:31)
[2022-12-14 08:32] VITALS: BP 101/76
[2022-12-14] MEDS: CHOLECALCIFEROL 1,000 UNITS TABLET 1000 UNITS PO (08:35)
[2022-12-14] MEDS: HYDROcodone/acetaminophen (*CRX) 5-325 MG TABLET 1 TAB PO ×2 (09:10→20:26)
--- NOTE | 2022-12-14 13:40 | PM.IMPN ---
Progress Note: A&P Assessment and Plan (1) Left ureteral stone: Code(s): N20.1 - Calculus of ureter Status: Acute (2) Enterocolitis: Code(s): K52.9 - Noninfective gastroenteritis and colitis, unspecified Status: Acute (3) Hypokalemia: Code(s): E87.6 - Hypokalemia Status: Acute (4) Hydroureteronephrosis: Code(s): N13.30 - Unspecified hydronephrosis Status: Acute Plan The patient presented to the emergency department for ongoing abdominal pain and concerns for constipation as detailed in HPI. Labs, imaging, EKG, and all reports were personally reviewed. CT of the abdomen and pelvis showed a 2.3 x 4 mm left ureterovesicular junction calculus with mild left ureteral hydronephrosis which is likely causing most of his pain. Urology has been consulted. he does not look constipated on this exam and in fact air-fluid levels were noted in the small bowel and right colon. Enterocolitis is a possibility and perhaps his feelings of constipation are instead related to this area of inflammation. He is afebrile with a normal white blood cell count however he is on biologics for his ankylosing spondylitis and given ongoing symptoms he will be empirically started on Zosyn. Urinalysis does not look infected however with CT findings pyelonephritis is not excluded. Urine cultures pending. Pt on iv fluids and iv ABX. [facility] from [facility] for extraction tomorrow. Start miralax and colace or constipation Subjective Date/time seen: 12/14/22 13:40 Interval history: 56-year-old male with neurofibromatosis, hypothyroidism, and ankylosing spondylitis who presented to the emergency department via private vehicle from home for evaluation of abdominal pain. CT scan shows - ?2.3 x 4 mm left ureterovesical junction calculus with mild left hydroureteronephrosis, probable peripelvic and proximal periureteral pyelosinus extravasation secondary to obstruction; infection is not excluded Minimal right nonobstructive nephrolithiasis Status post cholecystectomy Air-fluid levels of small bowel and right colon; consider enterocolitis Pt admitted for kidney stone and enterocolitis receiving iv fluids and iv pain medications presently awaiting for pt to pass his kidney stone himself otherwise pt will go for extraction under urology carissa Review of Systems Review of Systems: Pt having constipation now did have diarrhea initially Constipation + ongoing L flank pains Objective Data Vital Signs Vital Signs: Vital Signs - 24 hr 12/13/22 15:24 12/13/22 18:24 12/13/22 18:39 Temperature Pulse Rate 96 91 Respiratory Rate 18 18 Blood Pressure 110/85 103/90 Pulse Oximetry 98 100 Oxygen Delivery Room Air 12/13/22 20:49 12/14/22 04:26 12/14/22 08:29 Temperature 36.7 C 36.7 C Pulse Rate 75 82 78 Respiratory Rate 16 16 Blood Pressure 122/85 99/72 L Pulse Oximetry 99 100 Oxygen Delivery 12/14/22 08:32 Temperature Pulse Rate Respiratory Rate Blood Pressure 101/76 Pulse Oximetry Oxygen Delivery Intake/Output Intake/Output: Intake & Output 12/11/22 12/12/22 12/13/22 12/14/22 23:59 23:59 23:59 23:59 Intake Total 1999 940 Output Total 600 Balance 1999 340 Meds/Results Medications: Active Medications Generic Name Dose Route Start Last Admin Trade Name Freq PRN Reason Stop Dose Admin Acetaminophen 650 mg 12/13/22 21:05 Acetaminophen 325 Mg Tablet PO Q6H PRN Mild Pain (1-3) or Fever Hydrocodone Bitart/Acetaminophen 1 tab 12/13/22 21:05 12/14/22 09:10 Hydrocodone/Acetaminophen (*Crx) 5-325 Mg Tablet PO 1 tab Q6H PRN Administration Pain Rated 4-6 Cyclobenzaprine HCl 5 mg 12/14/22 21:00 Cyclobenzaprine Hcl 5 Mg Tablet PO QHS MARIELOS Folic Acid 1 mg 12/14/22 09:00 12/14/22 08:31 Folic Acid 1 Mg Tablet PO 1 mg DAILY MARIELOS Administration Piperacillin/Tazobactam/Dextrose 3.375 gm in 50 mls @ 100 mls/hr 12/14/22 00:00 09
[2022-12-14 14:00] VITALS: BP 117/76; PULSE 97; RESP 16; TEMP 37.1; O2SAT 99
[2022-12-14] MEDS: DOCUSATE SODIUM 100 MG CAPSULE PO (20:26)
[2022-12-14] MEDS: CYCLOBENZAPRINE HCL 5 MG TABLET PO (20:26)
[2022-12-14 22:00] VITALS: BP 125/92; PULSE 81; RESP 20; TEMP 36.6; O2SAT 99
[2022-12-15] MEDS: diphenhydrAMINE HCl CAP 25 MG CAPSULE 50 MG PO (00:36)
[2022-12-15] MEDS: LEVOTHYROXINE SODIUM 125 MCG TABLET PO (05:14)
[2022-12-15] MEDS: PIPERACILLN/TAZ 3.375GM/NS50ML 3.375 GM/50 ML BAG IVPB ×2 (05:14→12:28)
[2022-12-15 06:00] VITALS: BP 112/81; PULSE 76; RESP 16; TEMP 36.6; O2SAT 100
[2022-12-15 06:42] LABS: Hematocrit 34.9 % (42.0-52.0); Hemoglobin 11.5 g/dL (14.0-18.0); Mean Corpuscular Hemoglobin 33.4 pg (26-34); Mean Corpuscular Volume 101.5 fl (80-100); Mean Platelet Volume 9.5 fl (7.4-10.4); Platelet Count Result 252 k/mm3 (150-375); Red Blood Count 3.44 M/mm3 (4.6-6.20); Red Cell Distribution Width 13.6 % (11.5-14.5); White Blood Count 3.4 K/mm3 (4.5-10.0)
[2022-12-15 06:54] LABS: Anion Gap 6 mmol/L (8-16); Blood Urea Nitrogen 9 mg/dL (9-20); Calcium 8.7 mg/dL (8.4-10.2); Carbon Dioxide 22 mmol/L (22-30); Chloride 111 mmol/L (98-107); Estimated CRCL calculation 64 ml/min; Estimated Glomerular Filt Rate > 60; Glucose 95 mg/dL (65-110); Potassium 3.6 mmol/L (3.4-5.0); Sodium 139 mmol/L (137-145)
--- NOTE | 2022-12-15 07:43 | PC.NURSE ---
I have reviewed documentation completed by Geovanna Edmonds RN and agree with her assessments and documentation.
[2022-12-15 08:34] VITALS: PULSE 100
[2022-12-15] MEDS: nadoloL 20 MG TABLET PO (08:34)
[2022-12-15] MEDS: OLMESARTAN MEDOXOMIL 20 MG TABLET PO (08:35)
[2022-12-15 08:38] VITALS: O2SAT 100
--- NOTE | 2022-12-15 10:32 | PC.NURSE ---
unable to give most po meds to this pt this am due to pt being npo. per or nurse, ok to give cardiac meds with a sip of water. all other am meds will be given late or held. md aware. pt is comfortable and verbalized no other needs at this time
--- NOTE | 2022-12-15 12:49 | PM.IMPN ---
Progress Note: A&P Assessment and Plan (1) Left ureteral stone: Code(s): N20.1 - Calculus of ureter Status: Acute (2) Enterocolitis: Code(s): K52.9 - Noninfective gastroenteritis and colitis, unspecified Status: Acute (3) Hypokalemia: Code(s): E87.6 - Hypokalemia Status: Acute (4) Hydroureteronephrosis: Code(s): N13.30 - Unspecified hydronephrosis Status: Acute Plan The patient presented to the emergency department for ongoing abdominal pain and concerns for constipation as detailed in HPI. Labs, imaging, EKG, and all reports were personally reviewed. CT of the abdomen and pelvis showed a 2.3 x 4 mm left ureterovesicular junction calculus with mild left ureteral hydronephrosis which is likely causing most of his pain. Urology has been consulted. he does not look constipated on this exam and in fact air-fluid levels were noted in the small bowel and right colon. Enterocolitis is a possibility and perhaps his feelings of constipation are instead related to this area of inflammation. He is afebrile with a normal white blood cell count however he is on biologics for his ankylosing spondylitis and given ongoing symptoms he will be empirically started on Zosyn. Urinalysis does not look infected however with CT findings pyelonephritis is not excluded. Urine cultures pending. Pt on iv fluids and iv ABX. Pt to be NPO from [place] for extraction today. Pt would like a supp to help him open his bowels continue bowel regime in hospital and plan dc tomorrow Subjective Date/time seen: 12/15/22 12:49 Interval history: 56-year-old male with neurofibromatosis, hypothyroidism, and ankylosing spondylitis who presented to the emergency department via private vehicle from home for evaluation of abdominal pain. CT scan shows - ?2.3 x 4 mm left ureterovesical junction calculus with mild left hydroureteronephrosis, probable peripelvic and proximal periureteral pyelosinus extravasation secondary to obstruction; infection is not excluded Minimal right nonobstructive nephrolithiasis Status post cholecystectomy Air-fluid levels of small bowel and right colon; consider enterocolitis Pt admitted for kidney stone and enterocolitis receiving iv fluids and iv pain medications pt will go for kidney stone extraction today under urology Pt still having constipation issues despite miralax and colace Review of Systems Review of Systems: severe constipation, left flank pain Exam Narrative: General: Well-developed Respiratory: Lungs are clear to auscultation bilaterally. Cardiovascular: Regular rate and rhythm with S1-S2. Gastrointestinal: Abdomen is soft and nondistended with positive bowel sounds. He is tender to palpation over the left flank and in the periumbilical region. No voluntary guarding or rebound tenderness. No CVA tenderness. Skin: Warm and dry. Widespread, scattered fibromas consistent with history of neurofibromatosis. Extremities: No cyanosis, clubbing, or edema. Radial and pedal pulses intact. Neurological: Alert. Cranial nerves 2-12 are grossly intact. No gross focal deficits to casual conversation. Psychiatric: Pleasant and cooperative with normal mood and affect. Judgment and insight intact. Objective Data Vital Signs Vital Signs: Vital Signs - 24 hr 12/14/22 14:00 12/14/22 22:00 12/15/22 06:00 Temperature 37.1 C 36.6 C 36.6 C Pulse Rate 97 81 76 Respiratory Rate 16 20 16 Blood Pressure 117/76 125/92 H 112/81 Pulse Oximetry 99 99 100 Oxygen Delivery 12/15/22 08:34 12/15/22 08:38 12/15/22 08:00 Temperature Pulse Rate 100 Respiratory Rate Blood Pressure Pulse Oximetry 100 Oxygen Delivery Room Air Room Air Intake/Output Intake/Output: Intake & Output 12/12/22 12/13/22 12/14/22 12/15/22 23:59 23:59 23:59 23:59 Intake Total 1999 1505 1364 Output Total 8576 800 Balance 1999 -6888 8105 Meds/Results Medications: Active Medications
--- NOTE | 2022-12-15 13:49 | WPDUROPN2 ---
Progress Note: A&P Assessment and Plan (1) Left ureteral stone: Code(s): N20.1 - Calculus of ureter Status: Acute Assessment and Plan: Pt. has no pain today, he has been straining his urine. KUB shows no stone, he wants his stone removed if still there. We will proceed with a STAT CT then determine the need for surgery. Subjective Subjective Date/Time Seen: 12/15/22 13:49 Interval history: Pt. notes no pain today. KUB doesn't show the ureteral stone seen on CT. Review of Systems Cardiovascular: Cardiovascular: Denies chest pain Respiratory: Respiratory: Reports no additional respiratory complaints Gastrointestinal: Gastrointestinal: Denies abdominal pain, Denies nausea and Denies vomiting Genitourinary: Genitourinary: Denies hematuria, Denies dysuria, Denies flank pain, Denies urinary frequency, Denies urinary hesitancy and Denies urinary urgency Exam Const: General: cooperative and comfortable Resp: Effort & Inspection: normal respiratory effort Cardio: Rate: regular rate GI: GI Palp: Yes Soft to palpation and No Tenderness to palpation present (GI) : General: Yes no CVA tenderness Extrem: Right lower extremity: no edema Left lower extremity: no edema Objective Data Vital Signs Vital Signs: Vital Signs - 24 hr 12/14/22 14:00 12/14/22 22:00 12/15/22 06:00 Temperature 98.8 F 97.8 F 97.8 F Pulse Rate 97 81 76 Respiratory Rate 16 20 16 Blood Pressure 117/76 125/92 H 112/81 Pulse Oximetry 99 99 100 Oxygen Delivery 12/15/22 08:34 12/15/22 08:38 12/15/22 08:00 Temperature Pulse Rate 100 Respiratory Rate Blood Pressure Pulse Oximetry 100 Oxygen Delivery Room Air Room Air Intake/Output Intake/Output: Intake & Output 12/12/22 12/13/22 12/14/22 12/15/22 23:59 23:59 23:59 23:59 Intake Total 1999 1502 6938 Output Total 3100 800 Balance 1999 -8789 2550 Meds/Results Medications: Active Medications Generic Name Dose Route Start Last Admin Trade Name Freq PRN Reason Stop Dose Admin Acetaminophen 650 mg 12/13/22 21:05 Acetaminophen 325 Mg Tablet PO Q6H PRN Mild Pain (1-3) or Fever Hydrocodone Bitart/Acetaminophen 1 tab 12/13/22 21:05 12/14/22 20:26 Hydrocodone/Acetaminophen (*Crx) 5-325 Mg Tablet PO 1 tab Q6H PRN Administration Pain Rated 4-6 Bisacodyl 10 mg 12/15/22 12:54 Bisacodyl 10 Mg Suppository RECTAL QAM PRN Constipation Cyclobenzaprine HCl 5 mg 12/14/22 21:00 12/14/22 20:26 Cyclobenzaprine Hcl 5 Mg Tablet PO 5 mg QHS MARIELOS Administration Diphenhydramine HCl 50 mg 12/14/22 23:07 12/15/22 00:36 Diphenhydramine Hcl Cap 25 Mg Capsule PO 50 mg HS PRN Administration Insomnia Docusate Sodium 100 mg 12/14/22 21:00 12/14/22 20:26 Docusate Sodium 100 Mg Capsule PO 100 mg Q12HR MARIELOS Administration Folic Acid 1 mg 12/14/22 09:00 12/14/22 08:31 Folic Acid 1 Mg Tablet PO 1 mg DAILY [facility] Administration Piperacillin/Tazobactam/Dextrose 3.375 gm in 50 mls @ 100 mls/hr 12/14/22 00:00 12/15/22 12:28 Zosyn 3.375 Gm/Ns 50 Ml IVPB 100 mls/hr Q6H [facility] Administration Levothyroxine Sodium 125 mcg 12/14/22 06:30 12/15/22 05:14 Levothyroxine Sodium 125 Mcg Tablet PO 125 mcg DAILY@0630 MARIELOS Administration Loratadine 10 mg 12/14/22 09:00 12/14/22 08:31 Loratadine 10 Mg Tablet PO 10 mg QAM MARIELOS Administration Miconazole Nitrate 1 applic 12/14/22 09:00 12/14/22 16:23 Miconazole Nitrate 2% Cream 30 Gm Tube TOPICAL Not Given BID [facility] Morphine Sulfate 2 mg 12/13/22 21:05 12/14/22 05:29 Morphine Sulfate (*Crx) 2 Mg/Ml Inj IV PUSH 2 mg Q4H PRN Administration Pain Rated 7-10 Multivitamins/Minerals 1 tab 12/14/22 09:00 12/14/22 08:30 Multivitamins /C Lutein (Centrum Silver) Tablet *Bkc PO 1 tab QAM MARIELOS Administration Nadolol 20 mg 12/14/22 09:12/15/22 08:34 Nadolol 20 Mg Tablet PO 20 m
[2022-12-15 14:00] VITALS: BP 137/94; PULSE 72; RESP 16; TEMP 36; O2SAT 97
--- NOTE | 2022-12-15 14:27 | PM.DS ---
DS: Admitting Diagnosis Discharge Date 12/15/2022 Admitting Diagnosis Abdominal pain DS: Discharge Diagnosis Discharge Diagnosis (1) Left ureteral stone: Code(s): N20.1 - Calculus of ureter Status: Acute (2) Enterocolitis: Code(s): K52.9 - Noninfective gastroenteritis and colitis, unspecified Status: Acute (3) Hypokalemia: Code(s): E87.6 - Hypokalemia Status: Acute (4) Hydroureteronephrosis: Code(s): N13.30 - Unspecified hydronephrosis Status: Acute Plan 56-year-old male with neurofibromatosis, hypothyroidism, and ankylosing spondylitis who presented to the emergency department via private vehicle from home for evaluation of abdominal pain. CT scan shows -??2.3 x 4 mm left ureterovesical junction calculus with mild left hydroureteronephrosis, probable peripelvic and proximal periureteral pyelosinus extravasation secondary to obstruction; infection is not excluded Minimal right nonobstructive nephrolithiasis Status post cholecystectomy Air-fluid levels of small bowel and right colon; consider enterocolitis Pt admitted for kidney stone and enterocolitis receiving iv fluids and iv pain medications pt will go for kidney stone extraction today under urology. DS: Summary Hospital Course Hospital Course: 56-year-old male with neurofibromatosis, hypothyroidism, and ankylosing spondylitis who presented to the emergency department via private vehicle from home for evaluation of abdominal pain. CT scan shows -??2.3 x 4 mm left ureterovesical junction calculus with mild left hydroureteronephrosis, probable peripelvic and proximal periureteral pyelosinus extravasation secondary to obstruction; infection is not excluded Minimal right nonobstructive nephrolithiasis Status post cholecystectomy Air-fluid levels of small bowel and right colon; consider enterocolitis Pt admitted for kidney stone and enterocolitis receiving iv fluids and iv pain medications pt will go for kidney stone extraction today under urology. Pt passed stone himself no need for any urology procedure. Pt still having constipation issues despite miralax and colace will try suppository today and DC later today Time Spent with Patient Time attestation: Total time spent providing and/or coordinating discharge services:40 minutes on day of Dc Exam Narrative: General: Well-developed Respiratory: Lungs are clear to auscultation bilaterally. Cardiovascular: Regular rate and rhythm with S1-S2. Gastrointestinal: Abdomen is soft and nondistended with positive bowel sounds. He is tender to palpation over the left flank and in the periumbilical region. No voluntary guarding or rebound tenderness. No CVA tenderness. Skin: Warm and dry. Widespread, scattered fibromas consistent with history of neurofibromatosis. Extremities: No cyanosis, clubbing, or edema. Radial and pedal pulses intact. Neurological: Alert. Cranial nerves 2-12 are grossly intact. No gross focal deficits to casual conversation. Psychiatric: Pleasant and cooperative with normal mood and affect. Judgment and insight intact. DS: Data Data Completed and Pending Labs on day of discharge: Labs from last 24 hours 12/15/22 06:35 WBC 3.4 L RBC 3.44 L Hgb 11.5 L Hct 34.9 L MCV 101.5 H MCH 33.4 MCHC 33.0 RDW 13.6 Plt Count 252 MPV 9.5 Sodium 139 Potassium 3.6 Chloride 111 H Carbon Dioxide 22 Anion Gap 6 L BUN 9 Creatinine 1.00 Estim Creat Clear Calc 64 Estimated GFR > 60 Glucose 95 Calcium 8.7 Discharge Plan Discharge Attending physician on discharge: Ivory Larose Consulting providers: Eliecer Arvizu Discharging Clinician: Ivory Larose Anticipated Discharge Date/Time: 12/15/22 14:25 Patient Disposition: Home, Self-Care Activity: as tolerated Diet: as tolerated Discharge Instructions: Plenty of water + high fiber diet Use miralax daily Patient Instructions: Antibiotic
[2022-12-15] MEDS: BISACODYL 10 MG SUPPOSITORY RECTAL (14:49)
== END 2022-12-15 15:07 | disposition home or self-care (01) ==
LOC: ANHED 12:39 → ANH3MEDSUR 18:25
PROVIDERS: Emergency Medicine; Physician Assistant; Urology; Admitting Provider Family Medicine; Emergency Provider Emergency Medicine; PCP Internal Medicine; Visit Provider Family Medicine
PROC: (CPT 52352; principal; 2022-12-15 14:45)
DX: N13.2 Hydronephrosis with renal and ureteral calculous obstruction (principal); N40.0 Benign prostatic hyperplasia without lower urinary tract symptoms; K52.9 Noninfective gastroenteritis and colitis, unspecified; Q85.00 Neurofibromatosis, unspecified; E03.9 Hypothyroidism, unspecified; M87.9 Osteonecrosis, unspecified; M45.9 Ankylosing spondylitis of unspecified sites in spine; G47.33 Obstructive sleep apnea (adult) (pediatric); G47.00 Insomnia, unspecified; M19.09 Primary osteoarthritis, other specified site; F12.90 Cannabis use, unspecified, uncomplicated; Z90.49 Acquired absence of other specified parts of digestive tract; Z87.891 Personal history of nicotine dependence; Z79.891 Long term (current) use of opiate analgesic; Z79.52 Long term (current) use of systemic steroids; Z79.899 Other long term (current) drug therapy; Z82.49 Family history of ischemic heart disease and other diseases of the circulatory system
CPT/HCPCS: 36415; 74018; 74176; 80048; 80053; 81001; 83605; 83690; 83735; 85025; 85027; 87086; 96361; 96365; 96374; 96375; 96376; 99285; A9270; G0378; J1170; J1885; J2270; J2405; J2543; J7030; J7120

== ENCOUNTER 2023-10-13 09:22 | Outpatient (CLI) | payer OTHER, SELFPAY ==
--- NOTE | ~2023-10-13 | MR_ITS ---
MRI of the brain Clinical History: Headache Technique: Axial and sagittal T1-weighted images were acquired. These were followed by axial T2-weigh lucia, diffusion weighted, gradient, and FLAIR images. Findings: No abnormal signal seen in the brain parenchyma. No acute infarct, intracranial hemorrhage, or mass lesion. Ventricles are spaces are unremarkable. Orbits are unremarkable. There is mild left ethmoid sinus dis ease. There is right maxillary sinus disease. Remaining paranasal sinuses and mastoids are clear. Luther or intracranial flow voids are intact. Sagittal midline structures are intact. IMPRESSION: No intracranial abnormality. Sinus disease, as above. Reviewed, dictated and finalized at location .
== END 2023-10-13 09:23 ==
LOC: MICIMG 09:22
PROVIDERS: PCP Internal Medicine; Visit Provider Internal Medicine
DX: J32.2 Chronic ethmoidal sinusitis (principal); J32.0 Chronic maxillary sinusitis
CPT/HCPCS: 70551

== ENCOUNTER 2023-12-16 01:30 | Day surgery (SDC) | payer OTHER, SELFPAY ==
[2023-11-30 08:44] VITALS: BMI 26.6
[2023-12-16 08:25] VITALS: BP 103/64; PULSE 101; RESP 16; TEMP 36.2; O2SAT 100; BMI 26.8
[2023-12-16] MEDS: LACTATED RINGERS 1,000 ML 150 ML IV CONT (08:36)
--- NOTE | 2023-12-16 08:50 | WPDANESEPPF ---
Anes - Initial Pre Proc Eval Procedure: Operation Date: 12/16/23 09:30 Proposed Procedures p Colonoscopy - Mike Hogan MD Date/Time: 12/16/23 08:50 Surgeon: Mike Hogan MD Pre Op Diagnosis: Positive cologuard Patient Data Age: 57 Gender: M Height: 1.63 m Weight: 70.9 kg Last Vital Signs Temp 97.1 F L 12/16/23 08:25 Pulse 101 H 12/16/23 08:25 Resp 16 12/16/23 08:25 BP 103/64 12/16/23 08:25 Pulse Ox 100 12/16/23 08:25 O2 Del Method Room Air 12/16/23 08:25 Allergies Allergy/AdvReac Type Severity Reaction Status Date / Time erythromycin base Allergy Unknown Other Verified 12/16/23 08:19 Home Medications Medication Instructions Recorded Confirmed Type cetirizine 10 mg capsule (Zyrtec) 10 mg PO DAILY 08/29/19 12/16/23 History levothyroxine 125 mcg capsule 125 mcg PO DAILY 01/14/21 12/16/23 History cyclobenzaprine 5 mg tablet 10 mg PO QHS 12/25/21 12/16/23 History nadolol 20 mg tablet 20 mg PO DAILY #30 tabs 05/04/22 12/16/23 Rx tramadol 50 mg tablet 50 mg PO PRN PRN Pain, Moderate 05/28/22 12/16/23 History golimumab 12.5 mg/mL intravenous 12.5 mg IV Q1-2M 08/11/22 12/16/23 History solution (Simponi ARIA) diclofenac sodium 75 mg 75 mg PO BID 12/13/22 12/16/23 History tablet,delayed release diphenhydramine HCl 50 mg capsule 50 mg PO HS PRN Insomnia 12/13/22 12/16/23 History ketoconazole 2 % topical cream 1 applic topical PRN 12/13/22 12/16/23 History [id number]-mgtzo 150 mcg-vit K1 150 tablet PO DAILY 12/13/22 12/16/23 History 30 mcg-lycop 300 mcg-lutein tablet (Centrum Minis Men 50 Plus) polyethylene glycol 3350 17 gram 17 g PO QAM #30 ea 12/15/22 12/16/23 Rx oral powder packet (Miralax) erenumab-aooe 70 mg/mL 70 mg subcut MONTHLY #3 mL 12/28/22 12/16/23 Rx subcutaneous auto-injector (Aimovig Autoinjector) prednisone 5 mg tablet 10 mg PO ONCE PRN Inflammation 02/15/23 12/16/23 History omeprazole 20 mg capsule,delayed See Rx Instructions .Route 06/07/23 12/16/23 Rx release .COMPLEX #180 caps topiramate 25 mg tablet See Rx Instructions PO DAILY #270 07/15/23 12/16/23 Rx tabs olmesartan 20 mg tablet 10 mg PO DAILY 08/16/23 12/16/23 History ubrogepant 50 mg tablet (Ubrelvy) See Rx Instructions .Route 12/09/23 Rx .COMPLEX #10 tabs Patient hx anesthesia problems: none Family hx anesthesia problems: none Results Review: All pre-operative results and documents have been reviewed as part of the pre-operative evaluation. [facility] Past Medical History Medical History Ankylosing spondylitis Hypothyroidism Lumbago Neurofibromatosis Obstructive sleep apnea Thoracic aortic aneurysm Surgical History Surgical History History of fundoplication Hx of cholecystectomy Family History Family History Other Hypertension Social History Social History Smoking status: Never smoker Alcohol intake: never Substance use: current Substance use type: marijuana Other substance usage details: medical marijuana daily for pain Do You Feel Safe in your Home?: Yes Lack of Transportation: No Lack of Food: Never True Current Housing: I Have Housing Concerned About Future Housing: No Difficulty Paying Gas/Electric Bills: No Difficulty Paying for Meds: No Currently Unemployed: No Education: High School Diploma/GED Difficulty w/ Childcare or Family Care: No Living arrangements: with family Spiritual care concerns: No Anes - Eval Final PreProcedure Day of Procedure 12/16/23 08:50 Patient weight: overweight Heart: regular rate and rhythm Lungs: clear to auscultation Airway: Mallampati scale and special considerations (edentulous. ) Neurological: alert and orien
--- NOTE | 2023-12-16 09:32 | PM.HPGS ---
History of Present Illness History of Present Illness Consent: Risks, benefits, and alternatives have been discussed and questions answered. Patient agrees to proceed with procedure. Chief complaint: Positive cologuard Narrative: Ramakrishna Wylie is a 57 year old male here for colonoscopy, last one more than 10 years ago, recent + cologuard Review of Systems Review of Systems: All systems reviewed & are unremarkable except as noted in HPI and below PMFSH Past Medical History Medical History Ankylosing spondylitis Hypothyroidism Lumbago Neurofibromatosis Obstructive sleep apnea Thoracic aortic aneurysm Surgical History Surgical History History of fundoplication Hx of cholecystectomy Family History Family History Other Hypertension Social History Social History Smoking status: Never smoker Alcohol intake: never Substance use: current Substance use type: marijuana Other substance usage details: medical marijuana daily for pain Do You Feel Safe in your Home?: Yes Lack of Transportation: No Lack of Food: Never True Current Housing: I Have Housing Concerned About Future Housing: No Difficulty Paying Gas/Electric Bills: No Difficulty Paying for Meds: No Currently Unemployed: No Education: High School Diploma/GED Difficulty w/ Childcare or Family Care: No Living arrangements: with family Spiritual care concerns: No Meds Home Medications and Allergies Home Medications Medication Instructions Recorded Confirmed Type cetirizine 10 mg capsule (Zyrtec) 10 mg PO DAILY 08/29/19 12/16/23 History levothyroxine 125 mcg capsule 125 mcg PO DAILY 01/14/21 12/16/23 History cyclobenzaprine 5 mg tablet 10 mg PO QHS 12/25/21 12/16/23 History nadolol 20 mg tablet 20 mg PO DAILY #30 tabs 05/04/22 12/16/23 Rx tramadol 50 mg tablet 50 mg PO PRN PRN Pain, Moderate 05/28/22 12/16/23 History golimumab 12.5 mg/mL intravenous 12.5 mg IV Q1-2M 08/11/22 12/16/23 History solution (Simponi ARIA) diclofenac sodium 75 mg 75 mg PO BID 12/13/22 12/16/23 History tablet,delayed release diphenhydramine HCl 50 mg capsule 50 mg PO HS PRN Insomnia 12/13/22 12/16/23 History ketoconazole 2 % topical cream 1 applic topical PRN 12/13/22 12/16/23 History guscdtuk-byt-mvunm 150 mcg-vit K1 150 tablet PO DAILY 12/13/22 12/16/23 History 30 mcg-lycop 300 mcg-lutein tablet (Centrum Minis Men 50 Plus) polyethylene glycol 3350 17 gram 17 g PO QAM #30 ea 12/15/22 12/16/23 Rx oral powder packet (Miralax) erenumab-aooe 70 mg/mL 70 mg subcut MONTHLY #3 mL 12/28/22 12/16/23 Rx subcutaneous auto-injector (Aimovig Autoinjector) prednisone 5 mg tablet 10 mg PO ONCE PRN Inflammation 02/15/23 12/16/23 History omeprazole 20 mg capsule,delayed See Rx Instructions .Route 06/07/23 12/16/23 Rx release .COMPLEX #180 caps topiramate 25 mg tablet See Rx Instructions PO DAILY #270 07/15/23 12/16/23 Rx tabs olmesartan 20 mg tablet 10 mg PO DAILY 08/16/23 12/16/23 History ubrogepant 50 mg tablet (Ubrelvy) See Rx Instructions .Route 12/09/23 Rx .COMPLEX #10 tabs Allergies Allergy/AdvReac Type Severity Reaction Status Date / Time erythromycin base Allergy Unknown Other Verified 12/16/23 08:19 Vital Signs Vital Signs - 24 hr 12/16/23 08:25 Temperature 97.1 F L Pulse Rate 101 H Respiratory Rate 16 Blood Pressure 103/64 Pulse Oximetry 100 Oxygen Delivery Room Air Exam Const: General: comfortable and no acute distress HENMT: Face/Nose/Sinus: Normal nares present Eyes: General: appearance normal, both eyes and all related structures Neck: Neck: no JVD Resp: Auscultation: clear to auscultation bilaterally Cardio: Rate: regular rate Rhythm: regular
[2023-12-16 09:54] VITALS: BP 97/67; PULSE 78; RESP 20; O2SAT 100
[2023-12-16 10:04] VITALS: BP 94/68; PULSE 73; RESP 16; O2SAT 100
[2023-12-16 10:14] VITALS: BP 101/73; PULSE 68; RESP 16; O2SAT 100
== END 2023-12-16 10:19 | disposition home or self-care (01) ==
PROVIDERS: PCP Internal Medicine; Referring Provider Clinical Nurse Specialist; Visit Provider Internal Medicine Gastroenterology
PROC: 0DJD8ZZ Inspection of Lower Intestinal Tract, Via Natural or Artificial Opening Endoscopic (ICD-10-PCS; CPT 45378; principal; 2023-12-16 09:30)
DX: K64.8 Other hemorrhoids (principal); M45.9 Ankylosing spondylitis of unspecified sites in spine; E03.9 Hypothyroidism, unspecified; G47.33 Obstructive sleep apnea (adult) (pediatric); I71.20 Thoracic aortic aneurysm, without rupture, unspecified; F12.90 Cannabis use, unspecified, uncomplicated; Z79.891 Long term (current) use of opiate analgesic; Z79.85 Long-term (current) use of injectable non-insulin antidiabetic drugs; Z79.620 Long term (current) use of immunosuppressive biologic; Z79.52 Long term (current) use of systemic steroids; Z98.890 Other specified postprocedural states; Z90.49 Acquired absence of other specified parts of digestive tract
CPT/HCPCS: 45378; J2704; J7120

== ENCOUNTER 2024-03-30 12:35 | Outpatient (CLI) | payer OTHER, SELFPAY ==
--- NOTE | ~2024-03-30 | DEXA_ITS ---
Bone Density Report Name: KISHA MOODY Age: 58 Sex: Male Ethnicity: White Date of : 1965 Indication: hyperparathyroidism; Referring Provider: ALEJA MIXON Study: Bone densitometry was performed. Exam Date: March 30, 2024 Accession number: [id number] Bone Density: Region BMD T-score Z-score Classification AP Spine(L1-L4) 0.898 -1.8 -1.2 Osteopenia Femoral Neck (Left) 0.740 -1.4 -0.5 Osteopenia Total Hip (Left) 0.810 -1.5 -1.1 Osteopenia Femoral Neck (Right) 0.762 -1.2 -0.3 Osteopenia Total Hip (Right) 0.805 -1.5 -1.1 Osteopenia Femoral Neck Mean 0.751 -1.3 -0.4 Osteopenia Total Hip Mean 0.807 -1.5 -1.1 Osteopenia World Health Organization criteria for BMD impression classify patients as: Normal (T-score at or above -1.0), Osteopenia (T-score between -1.0 and -2.5), or Osteoporosis (T-score at or below -2.5). 10-year Fracture Risk(1): Major Osteoporotic Fracture 5.2% Hip Fracture 0.5% Reported Risk Factors: [place] (), Neck BMD=0.740, BMI=28.8 (1) FRAX(R) Version 3.08. Fracture probability calculated for an untreated patient. Fracture probability may be lower if the patient has received treatment. Clinical Information Provided by Patient: Has used the following medications: multi Has the following medical conditions: Hyperparathyroidism Patient maximum height was 64 No regular weight bearing exercise Drinks caffeinated beverages Impression: The patient has low bone mass, based on the Total Spine T-score. Discussion: BONE DENSITY IS LOW AT ONE OR MORE SKELETAL SITES. This patient's lowest T-score is low at one or more skeletal sites. It meets the World Health Organization's (WHO) criteria for ?low bone mass? (T-score between -1.0 and -2.5). The patient's 10-year risk of fracture as calculated by FRAX is less than the threshold where pharmacological therapy is recommended by the National Osteoporosis Foundation (NOF). However, all treatment decisions require clinical judgment and consideration of individual patient factors, including patient preferences, comorbidities, previous drug use, risk factors not captured in the FRAX model (e.g., frailty, falls, vitamin D deficiency, increased bone turnover, interval significant decline in bone density) and possible under or overestimation of fracture risk by FRAX. The patient should follow a healthful lifestyle (good nutrition with adequate calcium and vitamin D, and appropriate weight-bearing exercise). Follow-Up: Consider repeating this study in 2 to 3 years to reassess this patient's status, or sooner if there is some new clinical indication. Reported by: CHAITANYA on 03/30/2024 12:57:00 PM. Reviewed, dictated and finalized at location A.
== END 2024-03-30 12:36 | disposition home or self-care (01) ==
PROVIDERS: PCP Internal Medicine; Visit Provider Internal Medicine
DX: M45.9 Ankylosing spondylitis of unspecified sites in spine (principal); Q85.00 Neurofibromatosis, unspecified; M85.89 Other specified disorders of bone density and structure, multiple sites
CPT/HCPCS: 77080

== ENCOUNTER 2025-02-07 02:13 | Day surgery (SDC) | payer OTHER, SELFPAY ==
[2025-02-06 13:24] VITALS: BMI 25.0
--- OUTSIDE RECORDS SUMMARY | 2025-02-07 02:17 | XMS_ITS | Clinical Summary ---
Author Organization [facility] Address [address] [place] [id number] Care Team Providers Care Rubber Molder Name Role Phone Nakul Blanco DO Primary Care Provider [phone] Allergies Active Allergy Reactions Criticality Noted Date Comments Erythromycin Medications levothyroxine (SYNTHROID) 112 mcg tablet 1 Active nadoloL (CORGARD) 20 mg tablet Take 20 mg by mouth daily 1 Active omeprazole (PriLOSEC) 20 mg capsule Take 20 mg by mouth 2 (two) times a day 1 Active Trokendi XR 25 mg capsule,extended release 24hr TAKE 1 CAPSULE BY MOUTH EVERY MORNING AND 2 CAPS EVERY EVENING 1 Active celecoxib (CeleBREX) 200 mg capsule TAKE 1 CAPSULE BY MOUTH TWICE DAILY NEEDED FOR PAIN 1 Active cyclobenzaprine (FLEXERIL) 5 mg tablet TAKE 1 TO 2 TABLETS BY MOUTH NIGHTLY 2 Active Aimovig Autoinjector 70 mg/mL auto-injector subcutaneous injection INJECT 70 MG UNDER THE SKIN ONCE EACH MONTH 2 Active predniSONE (DELTASONE) 5 mg tablet PLEASE SEE ATTACHED FOR DETAILED DIRECTIONS 2 Active traMADoL (ULTRAM) 50 mg tablet 2 Active Ubrelvy 50 mg tablet TAKE 1 TABLET BY MOUTH ONCE MAY REPEAT ONCE IN >= 2 HOURS AFTER 1ST DOSE NEEDED 2 Active mv,Ca,min-iron-FA -lycopene 8 mg iron- 200 mcg-600 mcg tablet Take by mouth Activ e cholecalciferol 25 mcg (1,000 unit) tabletIndications :Neurofibromatosi s, type 1 (HCC) Take 1 tablet (1,000 Units total) by mouth daily 90 tablet 3 2 Active Active Problems Problem Noted Date Diagnosed Date Neurofibromatosis, 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 Acute pain of right knee 09/23/2020 Patellofemoral chondrosis of right knee 09/24/19 21 Effusion of right knee 09/23/2020 Injury of right knee 09/23/2020 Unusual smell in nose 01/29/2015 Hypertension 12/10/2010 Immunizations Immunization Administration Dates Next Due Pfizer SARS-CoV-2 Monovalent Vaccination (12+ Yrs) PURPLE 07/08/2020,06/10/2020 Surgical History Surgery Date Site/Laterality Comments CO CHOLECYSTECTOMY Cholecystectomy - (Added by TW Conv) Medical History Medical History Date Comments Neurofibromatosis, 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) (HCC) Neurofibromatosis Type I (Von Recklinghausen's Disease) - (Added by TW Conv) Personal history of other di seases of the circulatory system History of hypertension - (A dded by TW Conv) Tachycardia Tachycardia - (A dded by TW Conv) Plantar fascial fibromatosis Loreta ntar fasciitis - (Added by TW Conv) Obstructive sleep apnea Obstruct agapito sleep apnea - (Added by TW Conv) Arthritis GERD (gastroesophageal reflux disease) Hypertension Migraines Neurofibromatosis (HCC) Thyroid disease Family History Medical History Relation Name Comments Diabetes Father RUDOLPH Heart disease Father RUDOLPH Family history of cardiac disorder - (Added by TW Conv) Hypertension Father RUDOLPH Family history of hypertension - (Added by TW Conv) Kidney disease Father RUDOLPH Stroke Father RUDOLPH Hypertension Mother TREASURE Family history of hypertension - (Added by TW Conv) Relation Name Status Comments Father RUDOLPH Mother TREASURE Social History Tobacco Use Types Packs/Day Years Used Date Smoking Tobacco: Former Cigarettes Q uit: 1995 Smokeless Tobacco: Never Tobacco Cessation:Counseling Given: Not Answered Sex and Gender Information Value Date Recorded Sex Assigned at Not on file Legal Sex Male 9:51 PM DIESEL INSTRUCTOR Gender Identity Male 11/17/2020 9:30 PM CDT Sexual Orientation Straight 11/17/2020 9: 30 PM CDT Last Filed Vital Signs Vital Sign Reading Time Taken Comments Blood Pressure 134/84 03/11/2022 7:40 AM DIESEL INSTRUCTOR Pulse 97 03/11/2022 7:40 AM DIESEL INSTRUCTOR Temperature 36.8 C (98.2 F) 03/11/2022 7:40 AM DIESEL INSTRUCTOR Respiratory Rate - - Oxygen Saturation 100% 03/11/2022 7:40 AM DIESEL INSTRUCTOR Inhaled Oxygen Concentration - - Weight 76.7 kg (169 lb) 03/11/2022 7:40 AM DIESEL INSTRUCTOR Height 162.6 cm (5' 4) 03/11/2022 7:40 AM DIESEL INSTRUCTOR Body Mass Index 29.01 03/11/2022 7:40 AM DIESEL INSTRUCTOR Plan of Treatment Health Maintenance Due Date Last Done Comments Colon Cancer Screening-Colonoscopy 1965 Depression Screening 1965 Hepatitis C Screening 1965 Prostate Cancer Screening-PSA 1965 Regular Well Visit/Exam 18-64 1984 DTaP/Tdap/Td Vaccine (1 - Tdap) 03/13/2004 03/12/2004 Zoster Vaccine (1 of 2) 2016 Covid-19 Vaccine ( season) 2024 12/08/2021, 01/21/2021, 07/08/2020, Additional history exists Influenza Vaccine (#1) 2024 Hepatitis B Screening Completed 08/11/2004 , 03/12/2004, 02/11/2004 Pneumococcal vaccine <65 Aged Out No longer eligible based on patient's age to complete this topic Insurance [employer] [facility] Care Teams Rubber Molder Relationship Specialty Start Date End Date Nakul Blanco DO PCP - General Internal Medicine 09/17/20
--- OUTSIDE RECORDS SUMMARY | 2025-02-07 02:18 | XMS_ITS | Clinical Summary ---
Author Organization [facility] [employer] Address [address] [place] [address] Care Team Providers Care Pneumatic Tube Operator Name Role Phone Unavailable Primary Care Provider Unavailabl e Source Comments [facility] [employer],non-owned Affiliates and Associated Physician Practices is amultiple site organization consisting of ambulatory clinics and hospital sitesin [place], [place], [place] and [place]. This disclosure is being madepursuant to the Care Everywhere program and may not contain all information available regarding this patient. Last updated 17.[facility] [employer] Allergies No known active allergies Medications * Be aware that medications may not be up to date on this document. Alwaysverify current medications with the patient. 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 Gender Identity Not on file Sexual Orientation Not on file Last Filed Vital Signs Vital Sign Reading Time Taken Comments Blood Pressure 120/80 03/12/2019 2:08 PM HOSPITAL PLAN ADMINISTRATOR Pulse 85 03/12/2019 2:08 PM HOSPITAL PLAN ADMINISTRATOR Temperature 36.6 C (97.8 F) 03/12/2019 2:08 PM HOSPITAL PLAN ADMINISTRATOR Respiratory Rate 17 03/12/2019 2:08 PM HOSPITAL PLAN ADMINISTRATOR Oxygen Saturation 99% 03/12/2019 2:08 PM HOSPITAL PLAN ADMINISTRATOR Inhaled Oxygen Concentration - - Weight 86.2 kg (190 lb) 03/12/2019 2:08 PM HOSPITAL PLAN ADMINISTRATOR Height 162.6 cm (5' 4) 03/12/2019 2:08 PM HOSPITAL PLAN ADMINISTRATOR Body Mass Index 32.61 03/12/2019 2:08 PM HOSPITAL PLAN ADMINISTRATOR Plan of Treatment Health Maintenance Due Date Last Done Comments COLOGUARD (AGES 45-75) - COL ON CA SCREENING 1966 COLON MONITORING 1966 COLONOSCOPY - COLON CA SCREENING 1966 CT COLONOGRAPHY - COLON CA SCREENING 1966 Colorectal Cancer Screening 1966 FIT - COLON CA SCREENING 1966 FLEX SIG - COLON CA SCREENING 1966 LIPID TESTING 1966 HIV SCREENING 1981 HEPATITIS C SCREENING 12/25/1984 DTAP/TDAP/TD VACCINES (1 - Tdap) 1985 HEPATITIS B VACCINE (1 of 3 - 19+ 3-dose series) 1985 PNEUMOCOCCAL VACCINE 50+ (1 of 1 - PCV) 2016 ZOSTER VACCINE (1 of 2) 2016 COVID-19 VACCINE (3 - 2024-2 6 season) 2024 07/08/2020, 06/10/2020 INFLUENZA VACCINE (#1) 2024 01/16/2022 DEPRESSION SCREENING Completed 09/11/2024 HIB VACCINE Aged Out No longer eligi ble based on patient's age to complete this topic HPV VACCINE Aged Out No longer eligi ble based on patient's age to complete this topic MENINGOCOCCAL (Group B) VACCINE SHARED DECISION-MAKING Aged Out No longer eligible based on patient's age to complete this topic MENINGOCOCCAL GROUPS A/C/Y/W VACCINE Aged Out No longer eligible b ased on patient's age to complete this topic Insurance AETNA
[2025-02-07 06:17] VITALS: BP 103/83; PULSE 67; RESP 18; TEMP 36.2; O2SAT 98; BMI 24.6
[2025-02-07] MEDS: LACTATED RINGERS 1,000 ML 150 ML IV CONT (06:42)
--- NOTE | 2025-02-07 06:52 | WPDANESEPPF ---
Anes - Initial Pre Proc Eval Procedure: Operation Date: 02/07/25 07:30 Proposed Procedures p Esophagogastroduodenoscopy - Mike Hogan MD Date/Time: 02/07/25 06:52 Surgeon: Mike Hogan MD Pre Op Diagnosis: Abnormal weight loss Patient Data Age: 59 Gender: M Height: 1.63 m Weight: 65.2 kg Last Vital Signs Temp 36.2 C L 02/07/25 06:17 Pulse 67 02/07/25 06:17 Resp 18 02/07/25 06:17 BP 103/83 02/07/25 06:17 Pulse Ox 98 02/07/25 06:17 O2 Del Method Room Air 02/07/25 06:17 Allergies Allergy/AdvReac Type Severity Reaction Status Date / Time erythromycin base Allergy Unknown Other Verified 02/07/25 06:24 Home Medications ?Medication ?Instructions ?Recorded ?Confirmed ?Type cetirizine 10 mg capsule (Zyrtec) 10 mg PO DAILY 08/29/19 02/07/25 History levothyroxine 125 mcg capsule 125 mcg PO DAILY 01/14/21 02/07/25 History cyclobenzaprine 5 mg tablet 10 mg PO QHS 12/25/21 02/07/25 History nadolol 20 mg tablet 20 mg PO DAILY #30 tabs 05/04/22 02/07/25 Rx diclofenac sodium 75 mg 75 mg PO BID 12/13/22 02/07/25 History tablet,delayed release diphenhydramine HCl 50 mg capsule 25 mg PO HS PRN Insomnia 12/13/22 02/06/25 History ketoconazole 2 % topical cream 1 applic topical PRN 12/13/22 02/06/25 History [id number]-itb-bxflz 150 mcg-vit K1 150 tablet PO DAILY 12/13/22 02/07/25 History 30 mcg-lycop 300 mcg-lutein tablet (Centrum Minis Men 50 Plus) olmesartan 20 mg tablet 10 mg PO DAILY 08/16/23 02/07/25 History atogepant 60 mg tablet (Qulipta) 60 mg PO DAILY #30 tabs 07/24/24 02/07/25 Rx rimegepant 75 mg disintegrating 75 mg PO ONCE PRN migraine 07/24/24 02/07/25 Rx tablet (Nurtec ODT) headache #10 tabs azathioprine 50 mg tablet 50 mg PO BID 08/22/24 02/07/25 History certolizumab pegol 200 mg/mL 200 mg subcut ONCE 08/22/24 02/07/25 History subcutaneous syringe kit (Cimzia) prednisone 5 mg tablet 5 mg PO ONCE PRN Inflammation 12/14/24 02/06/25 History tramadol 50 mg tablet 50 mg PO BID PRN Pain, Moderate 12/14/24 02/07/25 History topiramate 25 mg tablet See Rx Instructions .Route 12/27/24 02/07/25 Rx .COMPLEX #270 tabs omeprazole 20 mg capsule,delayed 40 mg (2 x 20 mg) PO DAILY #30 caps 01/16/25 02/07/25 Rx release linaclotide 290 mcg capsule 290 mcg PO QAM #30 caps 01/30/25 02/07/25 Rx Patient hx anesthesia problems: none Family hx anesthesia problems: none Results Review: All pre-operative results and documents have been reviewed as part of the pre-operative evaluation. [facility] Past Medical History Medical History GERD (gastroesophageal reflux disease) Neurofibromatosis Obstructive sleep apnea Ankylosing spondylitis Thoracic aortic aneurysm Hypothyroidism Lumbago Surgical History Surgical History History of Rikki fundoplication History of fundoplication Hx of cholecystectomy Family History Family History Other Hypertension Social History Social History Smoking status: Never smoker Alcohol intake: never Substance use: current Substance use type: marijuana Other substance usage details: THC inhaler Do You Feel Safe in your Home?: Yes Lack of Transportation: No Lack of Food: Never True Current Housing: I Have Housing Concerned About Future Housing: No Difficulty Paying Gas/Electric Bills: No Difficulty Paying for Meds: No Currently Unemployed: No Education: High School Diploma/GED Difficulty w/ Childcare or Family Care: No Living arrangements: with family Additional living arrangements comments: with sp Spiritual care concerns: No Anes - Eval Final PreProcedure Day of Procedure 02/07/25 06:52 Patient weight: normal Heart: regular rate and rhythm Lungs: clear to auscultation Airway: Mallampati scale class II Neurological: alert and oriented Last oral intake: >/= 8 hours ASA classification: III Emergent: no Anesthetic plan: proceed Anesthesia type and monitoring: general GIVS and standard monitoring Results Review: All pre-operative results and documents have been reviewed as part of the pre-operative evaluation. Informed Consent: The patient's anesthetic plan and its attendant risks and benefits were discussed with the patient/family/POA. Questions were solicited and answers provided to the satisfaction of the patient/family/POA.
--- NOTE | 2025-02-07 07:23 | WPDHPUPDATE1 ---
History and Physical Update Update Date/Time: 02/07/25 07:23 History and Physical has been reviewed, including an updated exam of the patient. There are NO changes in the patient's condition. Risks, benefits, and alternatives have been discussed and questions answered. Patient agrees to proceed with procedure.
[2025-02-07] MEDS: BENZOCAINE (*SP) 60 ML SPRAY CAN (HURRICAINE) 1 SPRAY MUCOUS MEM (07:30)
--- NOTE | 2025-02-07 07:35 | S_PTH ---
PATIENT: Ramakrishna Wylie LOC: [facility] Crawford#:[id number] AGE/SX: 59/M ROOM: RE02/07/[address]: Mike Hogan MD : 1965 BED: DIS: 02/07/2025 SPEC #: [id number] RECD: 02/07/25 10:51 STATUS: ANN REQ #: [id number] STIVEN: 02/07/25 07:[address]: Mike Hogan DEPT: [facility] Surgical RECD BY: Eugenia Schaefer ENTERED: 02/07/25 10:53 SP TYPE: Surgical OTHR DR: Nakul Blanco DO Tissues: A - Small Bowel Bx B - Esophageal Biopsy C - Gastric Biopsy Procedures: Pas Fungus Hematoxylin and Eosin Stain Gross and Microscopic Level 4
[2025-02-07 07:38] VITALS: BP 77/54; PULSE 70; RESP 16; O2SAT 100
[2025-02-07 07:48] VITALS: BP 85/62; PULSE 72; RESP 18; O2SAT 99
[2025-02-07 07:58] VITALS: BP 88/67; PULSE 65; RESP 15; O2SAT 100
== END 2025-02-07 08:28 | disposition home or self-care (01) ==
PROVIDERS: PCP Internal Medicine; Referring Provider Internal Medicine Gastroenterology; Visit Provider Internal Medicine Gastroenterology
PROC: 0DJ08ZZ Inspection of Upper Intestinal Tract, Via Natural or Artificial Opening Endoscopic (ICD-10-PCS; CPT 43239; principal; 2025-02-07 07:30)
DX: K21.00 Gastro-esophageal reflux disease with esophagitis, without bleeding (principal); B37.81 Candidal esophagitis; K31.89 Other diseases of stomach and duodenum; R19.8 Other specified symptoms and signs involving the digestive system and abdomen; E03.9 Hypothyroidism, unspecified; K59.09 Other constipation; G47.33 Obstructive sleep apnea (adult) (pediatric); Q85.00 Neurofibromatosis, unspecified; F12.90 Cannabis use, unspecified, uncomplicated; Z79.52 Long term (current) use of systemic steroids; Z79.891 Long term (current) use of opiate analgesic; Z98.890 Other specified postprocedural states; Z90.49 Acquired absence of other specified parts of digestive tract
CPT/HCPCS: 43239; 88305; 88313; J2003; J2704; J7120

== ENCOUNTER 2025-02-16 08:23 | Outpatient (CLI) | payer OTHER, SELFPAY ==
--- NOTE | ~2025-02-16 | CT_ITS ---
EXAM/PROCEDURE: CT abdomen pelvis w con HISTORY: R10.84 - Generalized abdominal pain COMPARISON: December 15, 2022 TECHNIQUE: IV contrast enhanced CT of abdomen and pelvis performed FINDINGS: Intussusception in the left hemiabdomen involving proximal jejunum measuring approximately 6 cm in length seen on image 72 series 3. There appears to be moderate wall thickening circumferentially in the area of jejunum about the intussusception. No gross wall thickening present in the proximal distal portions. More distally, in the mid ileum, several loops of fluid-filled mildly distended small bowel are present. Moderate amount of stool in the transverse colon. No free air or free fluid seen. No pneumatosis. No grossly inflamed appendix AAA or gross CT evidence of acute pancreatitis. Gallbladder removed. 5 mm nonobstructing mid pole right kidney stone. No hydroureteronephrosis. Liver spleen stomach and adrenal glands kidneys and urinary bladder otherwise unremarkable. Lung bases clear. Heart size normal. Slight thickened appearance of the distal esophageal wall.. IMPRESSION: 1. Small bowel findings including intussusception of the proximal jejunum with wall thickening could be associated with inflammatory or infectious enteritis. Distal loops of mildly distended fluid-filled ileum also possibly associated with enteritis; early obstruction or ileus is also not excluded. 2. Mildly thickened appearance of the distal esophageal wall possibly associated with esophagitis or emesis. Reviewed, dictated and finalized at location A. CAL MECHANIC IMPRESSION: 1. Small bowel findings including intussusception of the proximal jejunum with wall thickening could be associated with inflammatory or infectious enteritis. Distal loops of mildly distended fluid-filled ileum also possibly associated wi th enteritis; early obstruction or ileus is also not excluded. 2. Mildly thickened appearance of the distal esophageal wall possibly associate d with esophagitis or emesis.
--- NOTE | ~2025-02-16 | XR_ITS ---
EXAM/PROCEDURE: XR small bowel follow through HISTORY: ABNORMAL WEIGHT LOSS, CONSTIPATION, RT SIDED ABDOMINAL PAIN COMPARISON: CT exam same date TECHNIQUE: Small bowel follow-through series performed. Patient given 240 mL of thin barium contrast ingested orally. FINDINGS: On the school bus inspector image, scattered loops of mildly distended small bowel appear to be present. Contrast is present in the genitourinary system. Surgical clips right upper quadrant. Following ingestion of contrast, at 15 minutes, contrast extends into the mid to distal jejunum. Within 30 minutes it appears to extend into the ileum. Thereafter there appears to be delayed passage with an additional 1.5 to 2 hours required to transit contrast into the large bowel. No stricture stenosis or occlusion identified. No extravasation of contrast or obvious mass. Some loops of jejunum are mildly distended. Intussusception seen on CT examination is not clearly identified on the small bowel series. IMPRESSION: Somewhat delayed transit of contrast through the ileum which may represent ileus. Contrast does eventually get into the large intestine approximately 3 hours post ingestion. The intussusception described on the CT exam is not as clearly seen on this small bowel series. If there is persistent concern for possible acute abdominal process, correlation with short interval follow-up CT of the abdomen and pelvis is recommended. Reviewed, dictated and finalized at location A. AIR FURNACE INSTALLER AND REPAIRER IMPRESSION: Somewhat delayed transit of contrast through the ileum which may represent ileu s. Contrast does eventually get into the large intestine approximately 3 hours post ingestion. The intussusception described on the CT exam is not as clearly seen on this small bowel series. If there is persistent concern for possible ac [place] abdominal process, correlation with short interval follow-up CT of the abdo men and pelvis is recommended.
--- OUTSIDE RECORDS SUMMARY | 2025-02-16 08:27 | XMS_ITS | Clinical Summary ---
Author Organization [facility] [employer] Address [address] [place] [address] Care Team Providers Care Broadcast Producer Name Role Phone Unavailable Primary Care Provider Unavailabl e Source Comments [facility] [employer],non-owned Affiliates and Associated Physician Practices is amultiple site organization consisting of ambulatory clinics and hospital sitesin [place], [place], [place] and [place]. This disclosure is being madepursuant to the Care Everywhere program and may not contain all information available regarding this patient. 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 Gender Identity Not on file Sexual Orientation Not on file Last Filed Vital Signs Vital Sign Reading Time Taken Comments Blood Pressure 120/80 03/12/2019 2:08 PM MACHINE SIGN WRITER Pulse 85 03/12/2019 2:08 PM MACHINE SIGN WRITER Temperature 36.6 C (97.8 F) 03/12/2019 2:08 PM MACHINE SIGN WRITER Respiratory Rate 17 03/12/2019 2:08 PM MACHINE SIGN WRITER Oxygen Saturation 99% 03/12/2019 2:08 PM MACHINE SIGN WRITER Inhaled Oxygen Concentration - - Weight 86.2 kg (190 lb) 03/12/2019 2:08 PM MACHINE SIGN WRITER Height 162.6 cm (5' 4) 03/12/2019 2:08 PM MACHINE SIGN WRITER Body Mass Index 32.61 03/12/2019 2:08 PM MACHINE SIGN WRITER Plan of Treatment Health Maintenance Due Date [...] age to complete this topic Insurance AETNA AETNA SELF PAY NO INSURANCE Member Subscriber Plan / Payer (Ef fective for All Dates) Name:Ramakrishna Wylie Member ID:Not on file Relation to Subscriber:Not on file Name:RAMAKRISHNA WYLIE Subscriber ID:Not on file (Home) Address: [facility] [place] [address] Payer ID:Not on file Group ID:Not on file Type:Self Pay Address: [place], [place]
--- OUTSIDE RECORDS SUMMARY | 2025-02-16 08:27 | XMS_ITS | Clinical Summary ---
Author Organization [facility] Address [address] [place] [address] Care Team Providers Care Flash Ranging Crewmember Name Role Phone Nakul Blanco DO Primary Care Provider [phone] Allergies Active Allergy Reactions Criticality Noted Date [...] 07/08/2020,06/10/2020 Surgical History Surgery Date Site/Laterality Comments [place] CHOLECYSTECTOMY Cholecystectomy - (Added by TW Conv) [...] on file Legal Sex Male 9:51 PM SPRING WINDER Gender Identity Male 11/17/2020 9:30 PM CDT Sexual Orientation Straight 11/17/2020 9: 30 PM CDT Last Filed Vital Signs Vital Sign Reading Time Taken Comments Blood Pressure 134/84 03/11/2022 7:40 AM SPRING WINDER Pulse 97 03/11/2022 7:40 AM SPRING WINDER Temperature 36.8 C (98.2 F) 03/11/2022 7:40 AM SPRING WINDER Respiratory Rate - - Oxygen Saturation 100% 03/11/2022 7:40 AM SPRING WINDER Inhaled Oxygen Concentration - - Weight 76.7 kg (169 lb) 03/11/2022 7:40 AM SPRING WINDER Height 162.6 cm (5' 4) 03/11/2022 7:40 AM SPRING WINDER Body Mass Index 29.01 03/11/2022 7:40 AM SPRING WINDER Plan of Treatment Health Maintenance Due Date [...] patient's age to complete this topic Insurance AETEdai HMO/[facility] Care Teams Flash Ranging Crewmember Relationship Specialty Start Date End Date Nakul Blanco DO PCP - General Internal Medicine 09/17/20
--- OUTSIDE RECORDS SUMMARY | 2025-02-16 08:27 | XMS_ITS | Patient Health Record ---
Author Organization [facility] Address [address] [place] [address] Care Team Providers Care Club Lounge Attendant Name Role Phone Bárbara Cardozoline Primary Care Provider [phone] Jerry Magdaleno Unavailable [phone] Anahy Wilder Unavailable [phone] Allergies Allergen (clinical drug ingredient) Drug/Non Drug Allergy documented on EMR Reaction Allergy Type Onset Date Status erythromycin Erythromycin flushed/hot/fac e red Drug Allergy Active Results Component Value Reference Range Flag Notes TSH+Free T4 ([id number]) Reviewed date:11/15/2024 09:01:55 AM Interpretation: Performing Lab:[facility], [address] [place] [id number], Phone - [phone], [facility] Notes[facility]Report: TSH 2.190 0.450-4.500 uIU/mL T4,Free(Direct) 1.79 0.82-1.77 ng/dL H *Comp. Metabolic Panel (14) ([id number]) Reviewed date:11/15/2024 09:07:56 AM Interpretation: Performing Lab:[facility], [address] [place] [id number], Phone - [phone], [facility] Notes/Report: Glucose TNP Test not performed. Serum was in contact with cells when received which will make the result inaccurate. BUN 11 6-24 mg/dL Creatinine 1.06 0.76-1.27 mg/dL eGFR 82 >59 mL/min/1.73 BUN/Creatinine Ratio 10 9-20 Sodium 136 134-144 mmol/L Potassium TNP Test not performed. Serum was in contact with cells when received which will make the result inaccurate. Chloride 99 96-106 mmol/L Carbon Dioxide, Total 20 20-29 mmol/L Calcium 10.4 8.7-10.2 mg/dL H Protein, Total 7.3 6.0-8.5 g/dL Albumin 4.7 3.8-4.9 g/dL Globulin, Total 2.6 1.5-4.5 g/dL Bilirubin, Total 0.5 0.0-1.2 mg/dL Alkaline Phosphatase 82 44-121 IU/L AST (SGOT) 11 0-40 IU/L ALT (SGPT) 6 0-44 IU/L Reason For Referral Reason Abdominal Xray : Obs tructive views Diagnosis 1 Acute constipation ( K59.00) Referral Organization [facility] Referring Provider First Name Jerry Referring Provider Last Name Sharla Referring Provider Speciality Internal M edicine Referred Provider Specialty Radiology Referral Priority Routine Medications Medication SIG (Take, Route, Frequency, Duration) Notes Start Date End Date Status Diclofenac Potassium Active Levothyroxine Sodium 125 MCG Tablet 1 tablet in the morning on an empty stomach Orally Once a day Active Omeprazole 20 MG Capsule Delayed Release 1 capsule 1/2 to 1 hour before morning meal Orally Once a day Active Olmesartan Medoxomil Active Topiramate 25 MG Tablet 1 tablet Orally Once a day Active Topiramate 50 MG Tablet 1 tablet Orally Once a day Active traMADol HCl 50 MG Tablet 1 tablet as ne eded Orally Once a day Active Nadolol 20 MG Tablet 2 tablets Orally On ce a day Active Cyclobenzaprine HCl 5 MG Tablet 1 tablet at bedtime as needed Orally Once a day Active Cimzia Active Qulipta 60 MG Tablet 1 tablet Orally Onc e a day Active Nurtec 75 MG Tablet Disintegrating 1 tablet on the tongue and allow to dissolve Orally Active azaTHIOprine 50 MG Tablet as directed Orally Active predniSONE 5 MG Tablet 1 tablet with alba d or milk Orally Once a day Active Social History Tobacco Use: Social History Observation Description Date Details (start date - stop date) Never Smoker NA - NA Social History Tobacco Use: Social Info Question Answer Notes Tobacco Control Tobacco use: Nonsmoker Additional Details Category Social Info Options Details Miscellaneous: Exercise: Patient does not exercise Sexually active: Active? Yes Drugs/Alcohol: Alcohol Patient does not use alcohol products History of Drug Use Patient does not use recreational drugs Tobacco Use: Other Tobacco Use Patient do es not use tobacco products Problems Problem Type SNOMED Code ICD Code Onset Dates Problem Status W/U Status Risk Notes Problem Acquired hypothyroidism (966421518) Acquired hypothyroidism (E03.9) Active confirmed Problem Oral candidiasis (39794007) Oral candidiasis (B37.0) Active confirmed Problem Acute constipation (263205230) Acute constipation (K59.00) Active confirmed Vital Signs Heart Rate 73 /min 10/16/2024 Respiratory Rate 16 /min 10/16/2024 Height-cm 162.56 cm 10/16/2024 Oximetry 99 % 10/16/2024 Blood pressure diastolic 80 mm Hg 10/16/2024 Weight-kg 66.04 kg 10/16/2024 Height 64 in 10/16/2024 Blood pressure systolic 104 mm Hg 10/16/2024 Weight 145.6 lbs 10/16/2024 BMI 24.99 kg/m2 10/16/2024 Encounters Encounter Location Date Provider Diagnosis [facility] [address] [facility] [address] [place] [address] 08/17/2024 Anahy [place] Oral candidiasis B37 .[address] [place] [address] [id number] [facility] [address] [place] [address] 10/16/2024 Jerry Magdaleno Acute constipation K 59.00 ; Acquired hypothyroidism E03.9 and Weight loss R63.[address] [facility] [address] [place] [address] 10/17/2024 Juliet Cardozo Assessments Encounter Date Diagnosis (ICD Code) Assessment Notes Treatment Notes Treatment Clinical Notes Section Notes 08/17/2024 Oral candidiasis (ICD-10 - B37.0) 10/16/2024 Acute constipation (ICD-10 - K59.00) Wt Loss: 10 lbs in 2M. Colonoscopy OK. R/O Thyroid abn 10/16/2024 Acquired hypothyroidism (ICD-10 - E03.9) Wt Loss: 10 lbs in 2M. Colonoscopy OK. R/O Thyroid abn 10/16/2024 Weight loss (ICD-10 - R63.4) Wt Loss: 10 lbs in 2M. Colonoscopy OK. R/O Thyroid abn Plan Of Treatment No Information Insurance Providers Payer Name Payer Address Payer Phone Subscriber Number Group Number Insured Name Patient Relationship to Insured Coverage Start Date Coverage End Date SSD A[employer] PPO [address] [place] [address] [id number] KISHA MOODY Self - patient is the insured 3 SSD A[employer] PPO [address] [place] [address] [id number] KISHA MOODY Self - patient is the insured 3 3 Medical (General) History Medical History History ICD Code HISTORY: Allergies HISTORY: Arthritis HISTORY: High Blood Pressure HISTORY: Thyroid Disease Surgical History Surgery Date(Month/Year) Sinus 2016 Sinus 2011 Gall Bladder 1996 Funcoplication 2002 Hospitalization History Reason Date(Month/Year) Kidney Stone 2022
[2025-02-16 08:49] LABS: Estimated Glomerular Filt Rate > 60
== END 2025-02-16 08:24 | disposition home or self-care (01) ==
PROVIDERS: PCP Internal Medicine; Visit Provider Internal Medicine Gastroenterology
DX: R10.84 Generalized abdominal pain (principal); R19.8 Other specified symptoms and signs involving the digestive system and abdomen; R63.4 Abnormal weight loss; K59.09 Other constipation
CPT/HCPCS: 74177; 74250; Q9967